=== PATIENT | female | born 1985 | race Caucasian/White ===

== ENCOUNTER 2016-10-10 14:08 | Emergency (ER) | payer MEDICAID ==
--- NOTE | 2016-10-10 14:33 | EDPHY ---
H & P Stated Complaint: n/v abd pain lower abd pain management/dr mcdonough/can't keep meds down Time Seen by Provider: 10/10/16 14:16 - Personal History LMP (Females 10-55): 15-21 Days Ago Current Tetanus/Diphtheria Vaccine: Yes Tetanus Vaccine Date: < 10 years - Medical/Surgical History Hx Asthma: Yes Hx Chronic Respiratory Disease: No Hx Diabetes: No Hx Cardiac Disease: No Hx Renal Disease: No Hx Cirrhosis: No Hx Alcoholism: No Hx HIV/AIDS: No Hx Splenectomy or Spleen Trauma: No Other PMH: ADDISONS DISEASE, PSEUDO-TUMOR CEREBREI, PREET-MOTOS, sinue surgery, copro proferia. - Social History Smoking Status: Never smoked Constitutional: Initial Vital Signs Temperature (C) 36.5 C 10/10/16 14:13 Heart Rate 110 H 10/10/16 14:13 Respiratory Rate 20 10/10/16 14:13 Blood Pressure 115/72 10/10/16 14:13 O2 Sat (%) 98 10/10/16 14:13 O2 Delivery Mode Room Air Allergies/Adverse Reactions: morphine [Morphine] Allergy (Intermediate, Verified 10/10/16 14:10) Itching Penicillins Allergy (Mild, Verified 10/10/16 14:10) Hives prochlorperazine [From Compazine] Allergy (Verified 10/10/16 14:10) prochlorperazine edisylate [From Compazine] Allergy (Verified 10/10/16 14:10) prochlorperazine maleate [From Compazine] Allergy (Verified 10/10/16 14:10) Sulfa (Sulfonamide Antibiotics) Allergy (Verified 10/10/16 14:10) VERSED Allergy (Unknown, Uncoded 02/25/15 15:45) Home Medications: Medication Instructions Recorded Hyoscyamine 0.15 mg PO QID #20 tablet 10/10/16 Keflex 10/10/16 Linzess 10/10/16 Percocet 7.5-325 mg Tablet 10/10/16 Sucralfate [Carafate Suspension] 100 mg PO QID #240 ml 10/10/16 Valium 10/10/16 Medical Decision Making ED Course/Re-evaluation: CHIEF COMPLAINT: Abdominal pain, vomiting. HISTORY OF PRESENT ILLNESS: This patient is a 31 year old female complaining of abdominal pain and vomiting onset one month ago and difficulty swallowing onset three days ago. She has history of Arahs's disease, and has had an episode beginning September 16. She was hospitalized in early September on the [facility] and has followed up with gastroenterologists. She has tried scopolamine, Phenergan, Zofran, and Reglan to relieve her nausea, but has been unable to keep down fluids or food. She is followed by Dr. Mcdonough at [facility] for chronic pain, but has been unable to keep her pain medication down either. She states she has lost 18 pounds in the last month. Three days ago, she felt her throat was closing up and states that swallowing has become difficult and painful. She has not taken any medications such as topical anesthetics for this. She takes Prednisone for her [place]'s and has been on a course of Doxycycline for a skin infection as well. Today, she has abdominal pain and flank pain as well as pain and difficulty with swallowing. She denies fever, shortness of breath, chills, diarrhea, or other associated symptoms. REVIEW OF SYSTEMS: A 10 point review of systems was performed and is negative with the exception of the elements mentioned in the history of present illness. PHYSICAL EXAM: General Appearance: Alert, well hydrated, appropriate, and non-toxic appearing. Head: Atraumatic without scalp tenderness or obvious injury Eyes: Pupils equal, round, reactive to light and accommodation, EOMI, no trauma , no injection. Ears: Clear bilaterally, no perforation, normal landmarks Nose: Atraumatic, no rhinorrhea, clear. Throat: There is no erythema or exudates, no lesions, normal tonsils, mucus membranes moist. Neck: Supple, 2+ carotid upstroke, non-tender, no lymphadenopathy. Respiratory: No retractions, no distress, no wheezes, and no accessory muscle use. Lungs are clear to auscultation bilaterally. Cardiovascular: Regular rate and rhythm, no murmurs, rubs, or gallops. Bilateral carotid, radial, dorsalis pedis, and posterior tibial pulses intact. Good capillary refill all extremities. Gastrointestinal: Lower left quadrant tenderness. Abdomen is soft, non- distended, no masses, no rebound, no guarding, no peritoneal signs. Musculoskeletal: Normal active ROM of all extremities, atraumatic. Neurological: Alert, appropriate, and interactive. The patient has normal DTRs and non-focal cranial nerves, motor, sensory, and cerebellar exam. Skin: No rashes, good turgor, no nodules on palpation. 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 PAST SURGICAL HISTORY: Sinus surgery SOCIAL HISTORY: Mother at bedside DIFFERENTIAL DIAGNOSIS: The differential diagnosis for the patient's abdominal pain and difficulty swallowing included but was not limited to dysphagia, odynophagia, gastritis, ovarian cyst, pelvic inflammatory disease, ovarian torsion, urinary tract infection, ectopic , cholecystitis, and appendicitis. MEDICAL DECISION MAKIN31 year old female with history of Arash's disease presenting with one month history of abdominal pain and vomiting with recent onset of dysphagia and odynophagia. Plan for GI cocktail for symptom relief. Lab work. Try Ketamine for pain. Plan to rehydrate with D5LR rather than normal saline per patient's request due to [[place]'s disease?]. Plan for labs including CBC, BMP, liver, lipase, BHCG , UA. Plan to administer 10mg IV Ketamine for pain relief. Plan for consult with GI of the [facility]. Spoke with Dr. Zamora, hospitalist regarding admission to treat dehydration, pain, oral intake difficulty. Labs unremarkable. Reassessed patient. She is feeling much better following medications and rehydration. Will consider outpatient workup. 18:[address] Pak, shrimp trawler. He agrees outpatient workup is sufficient for this patient. Plan to discharge in good condition. She will follow up with GI of the [facility] tomorrow to schedule upper endoscopy. Provided prescriptions for pain and symptom relief. Return precautions discussed. The patient is comfortable with this plan. - Data Points Laboratory Results: Laboratory Results 10/10/16 15:23 10/10/16 15:23 10/10/16 10/10/16 10/10/16 16:50 15:23 15:23 WBC RBC Hgb POC Hgb Hct POC Hct MCV MCH MCHC RDW Plt Count MPV Neut % (Auto) Lymph % (Auto) [place] % (Auto) Eos % (Auto) Baso % (Auto) Nucleat RBC Rel Count Absolute Neuts (auto) Absolute Lymphs (auto) Absolute Monos (auto) Absolute Eos (auto) Absolute Basos (auto) Absolute Nucleated RBC Immature Gran % Immature Gran # POC Sodium Sodium 138 mEq/L mEq/L (134-144) POC Potassium Potassium 4.5 mEq/L mEq/L (3.5-5.2) POC Chloride Chloride 109 mEq/L mEq/L (97-110) Carbon Dioxide 16 mEq/l L mEq/l (22-31) Anion Gap 13 mEq/L mEq/L (8-16) POC BUN BUN 8 mg/dL mg/dL (7-23) Creatinine 0.6 mg/dL mg/dL (0.6-1.0) POC Creatinine Estimated GFR > 60 Glucose 107 mg/dL H mg/dL (70-100) POC Glucose Calcium 9.5 mg/dL mg/dL (8.5-10.4) Total Bilirubin 0.5 mg/dL mg/dL (0.1-1.4) Conjugated Bilirubin 0.3 mg/dL mg/dL (0.0-0.5) Unconjugated Bilirubin 0.2 mg/dL mg/dL (0.0-1.1) AST 19 IU/L IU/L (14-46) ALT 20 IU/L IU/L (9-52) Alkaline Phosphatase 57 IU/L IU/L (38-126) Total Protein 6.9 g/dL g/dL (6.3-8.2) Albumin 4.2 g/dL g/dL (3.5-5.0) Lipase 49.0 IU/L IU/L (23-300) Beta HCG, Qual NEGATIVE Urine Color PALE YELLOW Urine Appearance CLEAR Urine pH 6.0 (5.0-7.5) Ur Specific Cleves 1.003 (1.002-1.030) Urine Protein NEGATIVE (NEGATIVE) Urine Ketones NEGATIVE (NEGATIVE) Urine Blood NEGATIVE (NEGATIVE) Urine Nitrate NEGATIVE (NEGATIVE) Urine Bilirubin NEGATIVE (NEGATIVE) Urine Urobilinogen NEGATIVE EU EU (0.2-1.0) Ur Leukocyte Esterase NEGATIVE (NEGATIVE) Urine RBC 1-3 /hpf /hpf (0-3) Urine WBC 1-3 /hpf /hpf (0-3) Ur Epithelial Cells TRACE /lpf /lpf (NONE-1+) Urine Glucose NEGATIVE (NEGATIVE) 10/10/16 10/10/16 15:23 15:21 WBC 11.49 10^3/uL H 10^3/uL (3.80-9.50) RBC 4.16 10^6/uL L 10^6/uL (4.18-5.33) Hgb 13.2 g/dL g/dL (12.6-16.3) POC Hgb 13.9 gm/dL gm/dL (12.6-16.3) Hct 38.2 % % (38.0-47.0) POC Hct 41 % % (38-47) MCV 91.8 fL fL (81.5-99.8) MCH 31.7 pg pg (27.9-34.1) MCHC 34.6 g/dL g/dL (32.4-36.7) RDW 13.2 % % (11.5-15.2) Plt Count 207 10^3/uL 10^3/uL (150-400) MPV 9.4 fL fL (8.7-11.7) Neut % (Auto) 83.5 % H % (39.3-74.2) Lymph % (Auto) 11.7 % L % (15.0-45.0) [place] % (Auto) 4.1 % L % (4.5-13.0) Eos % (Auto) 0.1 % L % (0.6-7.6) Baso % (Auto) 0.3 % % (0.3-1.7) Nucleat RBC Rel Count 0.0 % % (0.0-0.2) Absolute Neuts (auto) 9.60 10^3/uL H 10^3/uL (1.70-6.50) Absolute Lymphs (auto) 1.34 10^3/uL 10^3/uL (1.00-3.00) Absolute Monos (auto) 0.47 10^3/uL 10^3/uL (0.30-0.80) Absolute Eos (auto) 0.01 10^3/uL L 10^3/uL (0.03-0.40) Absolute Basos (auto) 0.03 10^3/uL 10^3/uL (0.02-0.10) Absolute Nucleated RBC 0.00 10^3/uL 10^3/uL (0-0.01) Immature Gran % 0.3 % % (0.0-1.1) Immature Gran # 0.04 10^3/uL 10^3/uL (0.00-0.10) POC Sodium 138 mEq/L mEq/L (134-144) Sodium POC Potassium 4.1 mEq/L mEq/L (3.3-5.0) Potassium POC Chloride 104 mEq/L mEq/L (97-110) Chloride Carbon Dioxide Anion Gap POC BUN 6 mg/dL L mg/dL (7-23) BUN Creatinine POC Creatinine 0.5 mg/dL L mg/dL (0.6-1.0) Estimated GFR Glucose POC Glucose 117 mg/dL H mg/dL (70-100) Calcium Total Bilirubin Conjugated Bilirubin Unconjugated Bilirubin AST ALT Alkaline Phosphatase Total Protein Albumin Lipase Beta HCG, Qual Urine Color Urine Appearance Urine pH Ur Specific Cleves Urine Protein Urine Ketones Urine Blood Urine Nitrate Urine Bilirubin Urine Urobilinogen Ur Leukocyte Esterase Urine RBC Urine WBC Ur Epithelial Cells Urine Glucose Medications Given: Discontinued Medications Al Hydroxide/Mg Hydroxide (Maalox Susp) 30 ml PO ONCE ONE Stop: 10/10/16 14:37 Last Admin: 10/10/16 15:29 Dose: 30 ml Hyoscyamine Sulfate (Levsin, Hyomax-Sl) 0.25 mg PO ONCE ONE Stop: 10/10/16 14:37 Last Admin: 10/10/16 15:29 Dose: 0.25 mg Lactated Ringer's (Lr) 1,000 mls @ 150 mls/hr IV EDNOW ONE Stop: 10/10/16 22:47 Last Admin: 10/10/16 16:10 Dose: 1,000 mls Ketamine HCl (Ketamine) 10 mg IVP EDNOW ONE Stop: 10/10/16 14:36 Last Admin: 10/10/16 15:29 Dose: 10 mg Ketorolac Tromethamine (Toradol) 30 mg IVP EDNOW ONE Stop: 10/10/16 14:36 Last Admin: 10/10/16 15:29 Dose: 30 mg Lidocaine (Lidocaine 2% Viscous) 15 ml PO ONCE ONE Stop: 10/10/16 14:37 Last Admin: 10/10/16 15:29 Dose: 15 ml Point of Care Test Results: 10/10/16 15:21 POC Sodium 138 POC Potassium 4.1 POC Chloride 104 POC BUN 6 L POC Creatinine 0.5 L POC Glucose 117 H Departure - Departure Disposition: Home, Routine, Self-Care Clinical Impression: Odynophagia Dysphagia Qualifiers: Dysphagia type: pharyngoesophageal phase Qualified Code(s): R13.14 - Dysphagia , pharyngoesophageal phase Condition: Good Instructions: Sucralfate (By mouth), Hyoscyamine (By mouth), Dysphagia (ED) Additional Instructions: 1. Follow up with GI of the [facility] for an upper endoscopy for further evaluation of your difficulty swallowing. They will call you first thing tomorrow morning to set up this procedure. 2. Take your Sucralfate as prescribed to relieve symptoms. 3. Return to the emergency department for uncontrollable pain, inability to eat or drink, uncontrollable vomiting, or other worsening of condition. Referrals: GWENDOLYN CHAN [Other] - As per Instructions Jl Pak MD [Medical Doctor] - As per Instructions Prescriptions: Hyoscyamine 0.15 mg PO QID #20 tablet Sucralfate [Carafate Suspension] 100 mg PO QID #240 ml Report Scribed for: Justice Knight Report Scribed by: Nellie Randolph Date of Report: 10/10/16 Time of Report: 18:16
[2016-10-10] MEDS ORDERED: KETOROLAC 30 MG/1 ML SDV IVP ONE (14:35)
[2016-10-10] MEDS ORDERED: KETAMINE 100 MG/10 ML SYR IVP ONE (14:35)
[2016-10-10] MEDS ORDERED: LIDOCAINE 2% VISCOUS 15 ML UDCUP PO ONE (14:36)
[2016-10-10] MEDS ORDERED: HYOSCYAMINE SULFATE 0.125 MG TAB PO ONE (14:36)
[2016-10-10] MEDS ORDERED: MAG HYDROX/AL HYDROX/SIMETH 30 ML UDCUP PO ONE (14:36)
[2016-10-10] MEDS ORDERED: D5W LR 1,000 ML IV SCH (15:30)
[2016-10-10 15:44] LABS: % IMMATURE GRANULYOCYTES 0.3 % (0.0-1.1); ABSOLUTE IMMATURE GRANULOCYTES 0.04 10^3/uL (0.00-0.10); ADD DIFF? NO; ADD MORPH? NO; ADD SCAN? NO; ATYPICAL LYMPHOCYTE FLAG 20 (0-99); FRAGMENT RBC FLAG 0 (0-99); HEMATOCRIT 38.2 % (38.0-47.0); HEMOGLOBIN 13.2 g/dL (12.6-16.3); LEFT SHIFT FLG 10 (0-99); LIPEMIA HEMOLYSIS FLAG 90 (0-99); MEAN CELL HEMOGLOBIN 31.7 pg (27.9-34.1); MEAN CELL HEMOGLOBIN CONCENTR. 34.6 g/dL (32.4-36.7); MEAN CELL VOLUME 91.8 fL (81.5-99.8); MEAN PLATELET VOLUME 9.4 fL (8.7-11.7); PLATELET CLUMPS FLAG 20 (0-99); PLATELET COUNT 207 10^3/uL (150-400); RED BLOOD CELL COUNT 4.16 10^6/uL (4.18-5.33); RED CELL DISTRIBUTION WIDTH 13.2 % (11.5-15.2)
[2016-10-10 15:57] LABS: ALANINE AMINOTRANSFERASE 20 IU/L (9-52); ALBUMIN 4.2 g/dL (3.5-5.0); ALKALINE PHOSPHATASE 57 IU/L (38-126); ANION GAP 13 mEq/L (8-16); ASPARTATE AMINOTRANSFERASE 19 IU/L (14-46); BILIRUBIN,TOTAL 0.5 mg/dL (0.1-1.4); BILIRUBIN-CONJUGATED 0.3 mg/dL (0.0-0.5); BILIRUBIN-UNCONJUGATED 0.2 mg/dL (0.0-1.1); CALCIUM 9.5 mg/dL (8.5-10.4); CARBON DIOXIDE 16 mEq/l (22-31); CHLORIDE 109 mEq/L (97-110); CREATININE 0.6 mg/dL (0.6-1.0); GLOMERULAR FILTRATION RATE > 60; GLUCOSE 107 mg/dL (70-100); POTASSIUM 4.5 mEq/L (3.5-5.2); SODIUM 138 mEq/L (134-144); TOTAL PROTEIN 6.9 g/dL (6.3-8.2)
[2016-10-10] MEDS ORDERED: LR 1,000 ML IV ONE (16:08)
[2016-10-10 17:01] LABS: COLOR PALE YELLOW; LEUKOCYTE ESTERASE,URINE NEGATIVE (NEGATIVE); NITRITE,URINE NEGATIVE (NEGATIVE)
[2016-10-10 17:39] VITALS: BP 100/62; RESP 16
[2016-10-10 18:36] VITALS: PULSE 99; TEMP 98.2; O2SAT 94
== END 2016-10-10 18:34 | disposition home or self-care (01) ==
DX: R13.14 Dysphagia, pharyngoesophageal phase (principal); J45.909 Unspecified asthma, uncomplicated; E86.0 Dehydration
CPT/HCPCS: 82947-QW; 96374; J1885

== ENCOUNTER 2016-10-12 09:35 | Day surgery (SDC) | payer MEDICAID ==
[2016-10-12] MEDS ORDERED: LR 1,000 ML IV ONE (10:48)
--- NOTE | 2016-10-12 11:04 | PDANEPAE ---
ANE History of Present Illness Patient presents for EGD ANE Past Medical History - Cardiovascular History Hx Hypertension: No Hx Arrhythmias: No Hx Chest Pain: No Hx Coronary Artery / Peripheral Vascular Disease: No Hx CHF / Valvular Disease: No Hx Palpitations: No Cardiovascular History Comment: BP RUNS LOW - Pulmonary History Hx COPD: No Hx Asthma/Reactive Airway Disease: Yes Hx Recent Upper Respiratory Infection: No Hx Oxygen in Use at Home: No Hx Sleep Apnea: No Sleep Apnea Screening Result - Last Documented: Negative Pulmonary History Comment: ASTHMA IN CHILDHOOD - Neurologic History Hx Cerebrovascular Accident: No Hx Seizures: No Hx Dementia: No Neurologic History Comment: SEIZURES IN CHILDHOOD - Endocrine History Hx Diabetes: Yes Endocrine History Comment: HASHIMOTOS - Renal History Hx Renal Disorders: No - Liver History Hx Hepatic Disorders: Yes Hepatic History Comment: JAIRO - Neurological & Psychiatric Hx Hx Neurological and Psychiatric Disorders: Yes Neurological / Psychiatric History Comment: ANXIETY & DEPRESSION - Cancer History Hx Cancer: No - Congenital Disorder History Hx Congenital Disorders: No - GI History Hx Gastrointestinal Disorders: Yes Gastrointestinal History Comment: CURRENTLY PAIN ESOPHAGEAL,STOMACH, ABDOMEN. NAUSEA & VOMITING - Other Health History Other Health History: CHRONIC PAIN. VERTIGO & FAINTING. JEREMI'S DISEASE. CORPROPORPHYRIA - Chronic Pain History Chronic Pain: Yes (flank/ head/ neck) - Surgical History Prior Surgeries: SALPINGECTOMY LACY & IUD. REMOVAL. BREAST AUGMENTATIONS. SINUS SURG X3. APPENDECTOMY. CHOLECYSTECTOMY. ADENOIDECTOMY. ABDOMINAL EXP LAP ANE Review of Systems - Exercise capacity Exercise capacity: >=4 METS METS (RN): 2 METS ANE Patient History - Allergies Allergies/Adverse Reactions: morphine [Morphine] Allergy (Intermediate, Verified 10/12/16 09:55) Hives Penicillins Allergy (Mild, Verified 10/10/16 14:10) Hives prochlorperazine [From Compazine] Allergy (Verified 10/10/16 14:10) prochlorperazine edisylate [From Compazine] Allergy (Verified 10/12/16 09:56) Anxiety prochlorperazine maleate [From Compazine] Allergy (Verified 10/10/16 14:10) Sulfa (Sulfonamide Antibiotics) Allergy (Verified 10/12/16 09:56) VERSED Allergy (Unknown, Uncoded 10/12/16 09:57) - Home Medications Home medications: home medication list seen and reviewed Home Medications: Linzess 290 mcg DAILY 10/10/16 [Last Taken 10/12/16 05:00] Valium 5 mg TID 10/10/16 [Last Taken 1 Day Ago] Cortef 5 mg BID 10/11/16 [Last Taken 1 Day Ago] Haldol 1 mg Q8HRS 10/11/16 [Last Taken 1 Day Ago] Keflex 500 QID 10/11/16 [Last Taken 10/11/16 19:00] Oxycodone HCl 7.5 Q6 10/11/16 [Last Taken 10/12/16 05:00] - NPO status NPO Status: no food or drink >8 hours NPO Since - Liquids (Date): 10/12/16 NPO Since - Liquids (Time): 05:00 NPO Since - Solids (Date): 10/11/16 NPO Since - Solids (Time): 17:00 - Smoking Hx Smoking Status: Never smoked - Family Anes Hx Family Hx Anesthesia Complications: MOTHER - CANNOT TOLERATE VERSED. AND OTHER ANESTH AGENTS ANE Labs/Vital Signs - Vital Signs Blood Pressure: 114/81 Heart Rate: 75 Respiratory Rate: 16 O2 Sat (%): 95 Height: 180.34 cm Weight: 72.575 kg ANE Physical Exam - Airway Neck exam: FROM Mouth exam: normal dental/mouth exam - Pulmonary Pulmonary: no respiratory distress - Cardiovascular Cardiovascular: regular rate and rhythym - ASA Status ASA Status: II ANE Anesthesia Plan Anesthesia Plan: GA with mask (RBA discussed. patient agrees to proceed)
[2016-10-12] MEDS ORDERED: PROPOFOL/EMULSION 500 MG/50 ML BOTTLE IV ONE (11:07)
[2016-10-12] MEDS ORDERED: ONDANSETRON 4 MG/2 ML VIAL ONE (11:07)
[2016-10-12] MEDS ORDERED: DEXAMETHASONE 4 MG/ML VIAL ONE ×2 (11:07)
[2016-10-12] MEDS ORDERED: LIDOCAINE 2% 5 ML SDV ONE (11:07)
[2016-10-12] MEDS ORDERED: LR 500 ML IV PRN (11:16)
[2016-10-12] MEDS ORDERED: ONDANSETRON 4 MG/2 ML VIAL IVP PRN (11:16)
[2016-10-12] MEDS ORDERED: NALOXONE HCL 0.4 MG/ML INJ IVP PRN (11:16)
--- NOTE | 2016-10-12 11:29 | PDGENHP ---
History & Physical Chief Complaint: Odynophagia and globus History of Present Illness: 31 yo female with ongoing n/v and early satiety. Episodic abdominal pain with meals. Now with globus and ogynophagia Pertinent Past, Social, Family History: Chronic pelvic pain. GERD. Vocal cord spasm Relevant Physical Exam: NAD. Hoarse voice. OP clear without thrush. CTA B/L. RRR without m/r/g. Soft abdomen. NABS. No R/G. Cardiorespiratory Assessment: Normal. ASA 2. Plan for EGD with MAC
[2016-10-12] MEDS ORDERED: OXYCODONE/APAP 5/325 TAB PO PRN (11:53)
--- NOTE | 2016-10-12 11:53 | POSTANESTH ---
Post Anesthetic Evaluation Cardiovascular Status: Normal, Stable Respiratory Status: Normal, Stable Level of Consciousness/Mental Status: Can Participate in Eval Pain Control: Adequate, Prn Tx Ordered Nausea/Vomiting Control: Adequate, Prn Tx Ordered Complications Possibly Related to Anesthesia: None Noted
[2016-10-12] MEDS ORDERED: OXYCODONE/APAP 5/325 TAB ONE (12:07)
[2016-10-12] MEDS ORDERED: fentaNYL 100 MCG/2 ML INJ ONE (12:27)
[2016-10-12] MEDS ORDERED: fentaNYL 50 MCG PATCH TD ONE (12:30)
[2016-10-12 12:31] VITALS: TEMP 97.3
--- NOTE | 2016-10-12 12:44 | GPN ---
[f rep st] PROCEDURE NOTE DATE OF PROCEDURE: 10/12/2016 PROCEDURE: Upper endoscopy with esophageal biopsy. ENVIRONMENTAL GEOLOGIST: Jl Pak MD. ANESTHESIA: Byron Gardner MD. ENDOSCOPY STAFF: David [facility] [employer]. PROCEDURE COMPLICATIONS: None. ESTIMATED BLOOD LOSS: Minimal from esophageal biopsy. CONSENT: Procedure consent was obtained from the patient after the risks and benefits of endoscopy and anesthesia were discussed in detail. Due to her history with complications from previous anesth esia and allergies to Versed, monitored anesthesia care was necessary. All her questions were answe red and informed consent was obtained. Procedure monitoring is continuous per anesthesia protocol. PROCEDURE DESCRIPTION: The patient was placed into the left lateral decubitus position with the hea d of the bed at about 30 degrees. Propofol was administered until she was comfortable. Oxygen was administered via mask. An oral bite block was placed and the Olympus endoscope was utilized to ente r the oropharynx. Under direct visualization, the endoscope was intubated into the esophagus and ad vanced ultimately to the 2nd portion of the duodenum. All mucosal surfaces were examined in their e ntirety including a retroflexed view of the gastric cardia. FINDINGS: The oropharynx was normal. The tongue is normal. The hypopharynx is normal. The epiglo ttis is normal. The vocal cords appeared normal. The tubular esophagus was intubated easily. In t he proximal esophagus at 20 cm from the incisors, was a circumferential pill-induced ulcer with exud ate friability and clear focal injury. This correlates well with her odynophagia and pain. The rem aining esophagus below the esophageal ulceration was normal. The GE junction was normal with the Z- line at 35 cm. The stomach was normal in its entirety including a retroflexed view of the gastric c ardia. The duodenum was normal to the third portion. IMPRESSION: Proximal esophageal circumferential ulceration with exudate and friability. This is mo st consistent with a pill-induced esophageal ulceration and pill-induced esophagitis. The remaining exam is normal. Biopsies were taken of the esophageal ulceration. RECOMMENDATIONS: 1. Soft diet. 2. Viscous lidocaine swallow for discomfort 5% t.i.d. for the next 7-10 days. 3. Omeprazole 40 mg p.o. b.i.d. 4. Await esophageal biopsies. 5. GI follow up in 7-10 days to reassess. /[id number]/MODL
[2016-10-12] MEDS ORDERED: fentaNYL 100 MCG/2 ML INJ IVP ONE (12:45)
[2016-10-12] MEDS ORDERED: KETOROLAC 30 MG/1 ML SDV ONE (13:58)
[2016-10-12] MEDS ORDERED: KETOROLAC 30 MG/1 ML SDV IVP ONE (14:00)
[2016-10-12] MEDS ORDERED: HALOPERIDOL 1 MG TAB PO ONE (14:00)
[2016-10-12 15:08] VITALS: BP 113/71; PULSE 78; RESP 16; O2SAT 94
== END 2016-10-12 14:44 | disposition home or self-care (01) ==
LOC: FSGY 09:35
PROVIDERS: ATTEND Internal Medicine Gastroenterology
PROC: 0DB58ZX Excision of Esophagus, Via Natural or Artificial Opening Endoscopic, Diagnostic (ICD-10-PCS; principal; 2016-10-12 11:00)
DX: K22.10 Ulcer of esophagus without bleeding (principal); T50.995A Adverse effect of other drugs, medicaments and biological substances, initial encounter; R13.12 Dysphagia, oropharyngeal phase; F45.8 Other somatoform disorders; E06.3 Autoimmune thyroiditis; F41.8 Other specified anxiety disorders
CPT/HCPCS: J1100; J1885; J2405; J2704; J3010

== ENCOUNTER 2016-10-13 11:07 | Inpatient (IN) | payer MEDICAID ==
--- NOTE | 2016-10-13 12:00 | EDPHY ---
H & P Time Seen by Provider: 10/13/16 11:55 HPI/ROS: Chief complaint. Nausea and vomiting after endoscopy HPI. 31-year-old female with history of chronic pain and has been having her pain with swallowing. She had an upper GI yesterday with indication of a did aphasia. A lesion was found in the proximal esophagus at 20 cm from incisors showing a circumferential likely pill induced ulcer. She tells me she can't keep her medications down and has had nausea and vomiting despite using Phenergan suppositories. Most importantly she has been at unable to take her chronic pain medication. She complains of pain behind the breast bone increased pain with swallowing. She also complains of generalized abdominal pain. ROS Constitutional. no fever/chills, no weakness Eyes. no problems with vision ENT. no sore throat, no nasal drainage Cardiovascular. no chest pain Respiratory. no shortness of breath, no cough Abdominal. Pain with swallowing, nausea vomiting, generalized abdominal pain . no problems urinating MS. no calf pain/swelling, no neck/back pain, no joint pain Skin. no rash Lymph. no swollen glands Neuro. 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 ENT, oropharynx without injection Respiratory: There are no retractions, lungs are clear to auscultation. Cardiovascular: Regular rate and rhythm. Gastrointestinal: Abdomen is soft and diffuse tenderness. No masses. Normal bowel sounds Neurological: Awake and alert, sensory and motor exams grossly normal. Skin: Warm and dry, no rashes. Musculoskeletal: Neck is supple nontender. Extremities symmetrical, full range of motion. Psychiatric: Patient is oriented X 3, there is no agitation. Constitutional: Initial Vital Signs Temperature (C) 36.5 C 10/13/16 11:13 Heart Rate 75 10/13/16 11:13 Respiratory Rate 18 10/13/16 11:13 Blood Pressure 117/82 H 10/13/16 11:13 O2 Sat (%) 99 10/13/16 11:13 O2 Delivery Mode Room Air Allergies/Adverse Reactions: Sulfa (Sulfonamide Antibiotics) Allergy (Severe, Verified 10/13/16 14:13) Other-Enter Comments morphine [Morphine] Allergy (Intermediate, Verified 10/13/16 11:12) Hives prochlorperazine edisylate [From Compazine] Allergy (Intermediate, Verified 14:13) Anxiety Penicillins Allergy (Mild, Verified 10/13/16 11:12) Hives VERSED Allergy (Mild, Uncoded 10/13/16 14:13) Other-Enter Comments Home Medications: Medication Instructions Recorded Cephalexin [Keflex (*)] 500 mg PO QID 10/13/16 Cyclobenzaprine [Flexeril 10 MG 10 mg PO TID PRN 10/13/16 (*)] Diazepam [Valium 5 MG (*)] 5 - 10 mg PO Q6HRS PRN 10/13/16 Haloperidol [Haldol 1 MG (*)] 1 mg PO Q8H PRN 10/13/16 Hydrocortisone [Cortef 10 mg (*)] 10 mg PO DAILY 10/13/16 Hyoscyamine Sulfate [Levsin, 0.125 mg PO QID 10/13/16 Hyomax-Sl 0.125 mg (*)] Linaclotide [Linzess] 290 mcg PO DAILY 10/13/16 Promethazine HCl 25 mg RC TID PRN 10/13/16 Promethazine HCl [Phenergan 25mg 25 mg PO TID PRN 10/13/16 (*)] Sucralfate [Carafate Oral Liquid] 15 ml PO QID 10/13/16 oxyCODONE HCL/ACETAMINOPHEN 1 each PO Q6H PRN 10/13/16 [Percocet 7.5-325 mg Tablet] Medical Decision Making - Diagnostics Imaging Results: Imaging Impressions Chest X-Ray 10/13/16 13:26 Impression: Normal chest x-ray. One-view chest x-ray is normal and shows no evidence for perforation Procedures: IV normal saline. Dilaudid, Phenergan IV. GI cocktail. ED Course/Re-evaluation: Re-evaluation 1:05 p.m. patient continues to complain of pain and nausea. She is repeatedly asking for further pain medication. We have offered her further Phenergan. She and I discussed at the beginning that I would be happy to give her dose of Dilaudid however we will not be giving her repeat doses of pain medication The patient, her mother, and I discussed laboratory evaluation, treatment plan including recommendation fo admission. She expresses understanding and agreement I consulted and discussed the case with Dr. Collins, hospitalist, who agrees to the admission I consulted and discussed the case with Dr. Parikh, supervisor grower who will consult on the patient in the hospital Differential Diagnosis: The patient does have a apparent pill induced ulcer in her esophagus. However she has had nausea and vomiting and unable to take her regular medications including her oxycodone. I have concerns for dehydration, opiate withdrawal, electrolyte abnormality, esophageal perforation following upper GI and biopsy - Data Points Laboratory Results: Laboratory Results 10/13/16 12:10/13/16 12:10/13/16 10/13/16 10/13/16 12: 12: 12:01 WBC 11.27 10^3/uL H 10^3/uL (3.80-9.50) RBC 3.94 10^6/uL L 10^6/uL (4.18-5.33) Hgb 12.3 g/dL L g/dL (12.6-16.3) Hct 36.4 % L % (38.0-47.0) MCV 92.4 fL fL (81.5-99.8) MCH 31.2 pg pg (27.9-34.1) MCHC 33.8 g/dL g/dL (32.4-36.7) RDW 13.2 % % (11.5-15.2) Plt Count 226 10^3/uL 10^3/uL (150-400) MPV 9.4 fL fL (8.7-11.7) Neut % (Auto) 64.5 % % (39.3-74.2) Lymph % (Auto) 28.6 % % (15.0-45.0) Anderson % (Auto) 6.0 % % (4.5-13.0) Eos % (Auto) 0.2 % L % (0.6-7.6) Baso % (Auto) 0.3 % % (0.3-1.7) Nucleat RBC Rel Count 0.0 % % (0.0-0.2) Absolute Neuts (auto) 7.28 10^3/uL H 10^3/uL (1.70-6.50) Absolute Lymphs (auto) 3.22 10^3/uL H 10^3/uL (1.00-3.00) Absolute Monos (auto) 0.68 10^3/uL 10^3/uL (0.30-0.80) Absolute Eos (auto) 0.02 10^3/uL L 10^3/uL (0.03-0.40) Absolute Basos (auto) 0.03 10^3/uL 10^3/uL (0.02-0.10) Absolute Nucleated RBC 0.00 10^3/uL 10^3/uL (0-0.01) Immature Gran % 0.4 % % (0.0-1.1) Immature Gran # 0.04 10^3/uL 10^3/uL (0.00-0.10) Sodium 138 mEq/L mEq/L (134-144) Potassium 3.9 mEq/L mEq/L (3.5-5.2) Chloride 106 mEq/L mEq/L (97-110) Carbon Dioxide 20 mEq/l L mEq/l (22-31) Anion Gap 12 mEq/L mEq/L (8-16) BUN 10 mg/dL mg/dL (7-23) Creatinine 0.6 mg/dL mg/dL (0.6-1.0) Estimated GFR > 60 Glucose 90 mg/dL mg/dL (70-100) Calcium 9.0 mg/dL mg/dL (8.5-10.4) Total Bilirubin 0.3 mg/dL mg/dL (0.1-1.4) Conjugated Bilirubin 0.3 mg/dL mg/dL (0.0-0.5) Unconjugated Bilirubin 0.0 mg/dL mg/dL (0.0-1.1) AST 16 IU/L IU/L (14-46) ALT 23 IU/L IU/L (9-52) Alkaline Phosphatase 52 IU/L IU/L (38-126) Total Protein 6.6 g/dL g/dL (6.3-8.2) Albumin 4.0 g/dL g/dL (3.5-5.0) Lipase 71.0 IU/L IU/L (23-300) Beta HCG, Qual NEGATIVE Medications Given: Discontinued Medications Al Hydroxide/Mg Hydroxide (Maalox Susp) 30 ml PO ONCE ONE Stop: 10/13/16 12:10 Last Admin: 10/13/16 12:52 Dose: 30 ml Hydromorphone HCl (Dilaudid) 1 mg IVP EDNOW ONE Stop: 10/13/16 12:10 Last Admin: 10/13/16 12:21 Dose: 1 mg Hyoscyamine Sulfate (Levsin, Hyomax-Sl) 0.25 mg PO ONCE ONE Stop: 10/13/16 12:10 Last Admin: 10/13/16 12:52 Dose: 0.25 mg Famotidine/Sodium Chloride (Pepcid 20 Mg (Premix)) 50 mls @ 200 mls/hr IV EDNOW ONE Stop: 10/13/16 12:23 Last Admin: 10/13/16 12:26 Dose: 50 mls Lactated Ringer's (Lr) 1,000 mls @ 500 mls/hr IV EDNOW ONE Stop: 10/13/16 14:07 Last Admin: 10/13/16 12:27 Dose: 1,000 mls Ketorolac Tromethamine (Toradol) 30 mg IVP EDNOW ONE Stop: 10/13/16 12:11 Last Admin: 10/13/16 12:22 Dose: 30 mg Lidocaine (Lidocaine 2% Viscous) 15 ml PO ONCE ONE Stop: 10/13/16 12:10 Last Admin: 10/13/16 12:52 Dose: 15 ml Promethazine HCl (Phenergan) 12.5 mg IVP EDNOW ONE Stop: 10/13/16 12:11 Last Admin: 10/13/16 12:23 Dose: 12.5 mg Promethazine HCl (Phenergan) 12.5 mg IVP EDNOW ONE Stop: 10/13/16 13:14 Last Admin: 10/13/16 13:18 Dose: 12.5 mg Departure - Departure Disposition: [facility] Acute Clinical Impression: Abdominal pain Condition: Fair
[2016-10-13] MEDS ORDERED: LR 1,000 ML IV ONE (12:08)
[2016-10-13] MEDS ORDERED: LIDOCAINE 2% VISCOUS 15 ML UDCUP PO ONE (12:09)
[2016-10-13] MEDS ORDERED: HYOSCYAMINE SULFATE 0.125 MG TAB PO ONE (12:09)
[2016-10-13] MEDS ORDERED: HYDROmorphONE/DILAUDID 1 MG/ML SYR IVP ONE (12:09)
[2016-10-13] MEDS ORDERED: MAG HYDROX/AL HYDROX/SIMETH 30 ML UDCUP PO ONE (12:09)
[2016-10-13] MEDS ORDERED: FAMOTIDINE 20 MG/NACL 50 ML IV ONE (12:09)
[2016-10-13] MEDS ORDERED: PROMETHAZINE HCL 25 MG/ML INJ IVP ONE ×2 (12:10→13:13)
[2016-10-13] MEDS ORDERED: KETOROLAC 30 MG/1 ML SDV IVP ONE (12:10)
[2016-10-13 12:15] LABS: % IMMATURE GRANULYOCYTES 0.4 % (0.0-1.1); ABSOLUTE IMMATURE GRANULOCYTES 0.04 10^3/uL (0.00-0.10); ADD DIFF? NO; ADD MORPH? NO; ADD SCAN? NO; ATYPICAL LYMPHOCYTE FLAG 10 (0-99); FRAGMENT RBC FLAG 0 (0-99); HEMATOCRIT 36.4 % (38.0-47.0); HEMOGLOBIN 12.3 g/dL (12.6-16.3); LEFT SHIFT FLG 0 (0-99); LIPEMIA HEMOLYSIS FLAG 90 (0-99); MEAN CELL HEMOGLOBIN 31.2 pg (27.9-34.1); MEAN CELL HEMOGLOBIN CONCENTR. 33.8 g/dL (32.4-36.7); MEAN CELL VOLUME 92.4 fL (81.5-99.8); MEAN PLATELET VOLUME 9.4 fL (8.7-11.7); PLATELET CLUMPS FLAG 20 (0-99); PLATELET COUNT 226 10^3/uL (150-400); RED BLOOD CELL COUNT 3.94 10^6/uL (4.18-5.33); RED CELL DISTRIBUTION WIDTH 13.2 % (11.5-15.2)
[2016-10-13 12:29] LABS: ALANINE AMINOTRANSFERASE 23 IU/L (9-52); ALKALINE PHOSPHATASE 52 IU/L (38-126); ANION GAP 12 mEq/L (8-16); ASPARTATE AMINOTRANSFERASE 16 IU/L (14-46); BILIRUBIN,TOTAL 0.3 mg/dL (0.1-1.4); BILIRUBIN-CONJUGATED 0.3 mg/dL (0.0-0.5); CARBON DIOXIDE 20 mEq/l (22-31); CHLORIDE 106 mEq/L (97-110); CREATININE 0.6 mg/dL (0.6-1.0); GLOMERULAR FILTRATION RATE > 60; GLUCOSE 90 mg/dL (70-100); POTASSIUM 3.9 mEq/L (3.5-5.2); SODIUM 138 mEq/L (134-144); TOTAL PROTEIN 6.6 g/dL (6.3-8.2)
[2016-10-13] MEDS ORDERED: ONDANSETRON DISINTEGRATING 4 MG TAB PO PRN (15:31)
[2016-10-13] MEDS ORDERED: ACETAMINOPHEN 325 MG TAB PO PRN (15:31)
[2016-10-13] MEDS ORDERED: HALOPERIDOL 1 MG TAB PO PRN (15:33)
[2016-10-13] MEDS ORDERED: CYCLOBENZAPRINE 10 MG TAB PO PRN (15:33)
[2016-10-13] MEDS ORDERED: NALOXONE HCL 0.4 MG/ML INJ IVP PRN (15:34)
[2016-10-13] MEDS: HYOSCYAMINE SULFATE 0.125 MG TAB PO SCH ×2 (16:00→20:07)
[2016-10-13] MEDS ORDERED: SUCRALFATE 1 GM/10 ML UDCUP PO SCH ×2 (16:00→17:30)
[2016-10-13] MEDS ORDERED: SUCRALFATE 100 MG/ML UDSYR PO SCH ×2 (16:00)
[2016-10-13] MEDS: ONDANSETRON 4 MG/2 ML VIAL IVP PRN ×2 (16:06→21:58)
[2016-10-13] MEDS: HYDROCORTISONE 100 MG/2 ML VIAL IVP SCH ×2 (16:06→21:24)
--- NOTE | 2016-10-13 16:09 | GHP ---
[f rep st] HISTORY AND PHYSICAL DATE OF ADMISSION: 10/13/2016 CHIEF COMPLAINT: Nausea, vomiting, abdominal pain. HISTORY OF PRESENT ILLNESS: This is a 31-year-old female with a complicated past medical history. She has been admitted multiple times for abdominal pain, nausea and vomiting. 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 She was last admitted in February with abdominal pain, nausea and vomiting. She did have a colonoscopy at that time, which was fairly normal. She had been doing fairly well, relatively speaking, until September 18 when her steroids were discontin ued briefly in order to get blood work, it appears. She had an addisonian crisis and was hospitalized at that time. Ever since then, she has been having lower abdominal pain as well as na usea and vomiting. She says she has lost about 20 pounds of weight since then. She did have an EGD done yesterday which showed a pill-induced ulcer in the esophagus. However, she states that becaus e of being n.p.o., she has just been unable to get on top of her pain and has not been able to lb ate her p.o. pain medications. She states that she gets into these cycles with both adrenal insuffi ciency and her pain syndrome where she needs IV medications to break the cycle. She is not having a ny fevers or chills. She does admit to some melena. Patient also has been on antibiotics for some time, as she has been having variable infections. She has recently been on Keflex due to cellulitis in her right arm. REVIEW OF SYSTEMS: A 10-point review of systems was obtained and was negative. PAST MEDICAL HISTORY: 1. Adrenal insufficiency. 2. Previous history of pseudotumor cerebri. 3. Possible porphyria. 4. Possible immune deficiency. 5. Chronic narcotic use. 6. Bipolar. 7. Stephan's. MEDICATIONS: Reviewed. SOCIAL HISTORY: No smoking. Lives with her mother. FAMILY HISTORY: Both father and grandfather with acute intermittent porphyria. PHYSICAL EXAM: VITAL SIGNS: Afebrile. Blood pressure is 119/83, heart rate 77, oxygen saturation 98% on room air. GENERAL: The patient is in mild to moderate distress secondary to pain and nausea . HEENT: Nonicteric sclerae. Extraocular movements intact. Moist mucous membranes. NECK: Suppl e. No thyromegaly. LUNGS: Good effort. Clear to auscultation bilaterally. CARDIOVASCULAR: Regu lar rate and rhythm. No murmurs, rubs or gallops. ABDOMEN: Positive bowel sounds. Soft. Mild te nderness. No rebound or guarding. EXTREMITIES: No clubbing, cyanosis or edema. SKIN: Without ra sh. There is a small excoriation on the right forearm that does not look overtly infected. NEUROLO GIC: Alert and oriented x3. Moving all 4 extremities equally. LABORATORIES: White count 11, hemoglobin 12. Chemistry and LFTs are normal. Beta HCG is negative. Chest x-ray personally reviewed and interpreted as negative. ASSESSMENT: This is a 31-year-old female with a complicated medical history, chronic abdominal pain , nausea and vomiting, presenting with similar symptoms after EGD. PLAN: 1. Abdominal pain, nausea and vomiting. The patient believes that if we can get on top of her pain that this should improve. She is requesting a AUTO RESEARCH ENGINEER, although I am concerned that there is a psychog enic component to this. I think that it might be worth trying to treat aggressively to see if we ca n get her out of the hospital. In addition, she states that this does happen when she is in adrenal crisis as well, and even though her blood pressures are normal, we will go ahead with some IV hydro cortisone. My hope is that we can treat aggressively and try to be able to get her out of the hospi merlin in the next 24 to 48 hours. 2. Possible adrenal insufficiency. Consultation note in 2014 was strongly skeptical of that diagno sis. I believe she [facility]. We may put her on a l ittle bit of a higher dose of steroids on discharge until she is able to see her combo welder. 3. Recent diagnosis of pill-induced ulcer. Continue PPI. /[id number]/MODL
[2016-10-13] MEDS ORDERED: diphenhydrAMINE 50 MG CAP PO PRN (18:32)
[2016-10-13] MEDS: diphenhydrAMINE 25 MG CAP PO PRN (18:43)
[2016-10-13] MEDS: PROMETHAZINE HCL 25 MG/ML INJ IVP PRN (19:35)
[2016-10-13] MEDS: HYDROmorphONE/DILAUDID 6 MG/30 ML PCA IV PRN (20:06)
[2016-10-13] MEDS: SUCRALFATE 1 GM/10 ML UDCUP PO SCH (20:07)
[2016-10-14] MEDS: diphenhydrAMINE 25 MG CAP PO PRN ×2 (01:29→17:24)
[2016-10-14] MEDS: D5W 1/2 NS W/ 20 KCl/L 1,000 ML IV SCH (01:32)
[2016-10-14] MEDS: PROMETHAZINE HCL 25 MG/ML INJ IVP PRN ×3 (01:33→18:22)
[2016-10-14] MEDS: HYDROmorphONE/DILAUDID 6 MG/30 ML PCA IV PRN ×3 (02:42→19:18)
[2016-10-14] MEDS: HYDROCORTISONE 100 MG/2 ML VIAL IVP SCH ×3 (05:19→22:20)
[2016-10-14] MEDS: HYOSCYAMINE SULFATE 0.125 MG TAB PO SCH ×4 (05:19→20:01)
[2016-10-14] MEDS: SUCRALFATE 1 GM/10 ML UDCUP PO SCH ×4 (05:19→20:01)
[2016-10-14] MEDS: ONDANSETRON 4 MG/2 ML VIAL IVP PRN ×3 (05:28→20:02)
[2016-10-14] MEDS: ENOXAPARIN 40 MG/0.4 ML SYR SC SCH (07:40)
[2016-10-14] MEDS: PANTOPRAZOLE SODIUM 40 MG in NS 100 ML IV SCH ×2 (10:10→20:01)
[2016-10-14] MEDS ORDERED: FLUCONAZOLE 150 MG TAB PO ONE (13:15)
--- NOTE | 2016-10-14 13:43 | SOAPPROG ---
[facility] Progress Note Assessment/Plan: Assessment: Plan: 10/14/16 13:42 See dictated consult for details. Objective: Vital Signs Temp Pulse Resp BP Pulse Ox 36.7 C 58 L 16 105/78 100 10/14/16 12:00 10/14/16 12:00 10/14/16 12:00 10/14/16 12:00 10/14/16 12:00 10/13/16 10/14/16 10/15/16 05:59 05:59 05:59 Intake Total 2450 Balance 2450 ICD10 Worksheet Patient Problems: Problems Problem Status Onset Headache Acute Colitis Acute Bloody diarrhea Acute Abdominal pain Acute
--- NOTE | 2016-10-14 14:51 | HOSPPROG ---
Hospitalist Progress Note Assessment/Plan: * acute on chronic abdominal pain and nausea * Unclear etiology * Will check GI pathogen panel * I do not believe a colonoscopy is indicated * question Orlando's disease * On higher dose steroids * A couple years ago this diagnosis was ruled out by Endocrinology * superficial cellulitis * Switch back to Keflex * questionable porphyria diagnosis * Studies have been negative here Subjective: Complaining of continued abdominal pain. Thinks she has an infection because heart rate is lower than normal Objective: Vital Signs Temp Pulse Resp BP Pulse Ox 36.7 C 72 18 121/81 H 96 10/14/16 12:00 10/14/16 14:00 10/14/16 14:00 10/14/16 14:00 10/14/16 14:00 10/13/16 10/14/16 10/15/16 05:59 05:59 05:59 Intake Total 2450 Balance 2450 Discussed with Gastroenterology - Physical Exam Constitutional: no apparent distress, appears nourished, not in pain Eyes: anicteric sclera, EOMI Ears, Nose, Mouth, Throat: moist mucous membranes, hearing normal Cardiovascular: regular rate and rhythym, no murmur, rub, or gallop Respiratory: no respiratory distress Gastrointestinal: normoactive bowel sounds, soft, non-tender abdomen, no palpable masses Skin: warm Neurologic: AAOx3 Psychiatric: anxious ICD10 Worksheet Patient Problems: Problems Problem Status Onset Abdominal pain Acute Bloody diarrhea Acute Colitis Acute Headache Acute
[2016-10-14] MEDS: DIAZEPAM 5 MG TAB PO PRN (17:23)
[2016-10-14] MEDS: CEPHALEXIN 250 MG CAP PO SCH (17:23)
--- NOTE | 2016-10-14 22:47 | GCON ---
[f rep st] CONSULTATION DATE OF CONSULTATION: 10/14/2016 CONSULTING PHYSICIAN: Amina Cortez MD REASON FOR CONSULTATION: Abdominal pain/nausea/vomiting. CHIEF COMPLAINT: Nausea and vomiting. HISTORY OF PRESENT ILLNESS: The patient is a 31-year-old female with a complicated medical history including a possible history of adrenal insufficiency, pseudotumor cerebri, porphyria, bipolar disorder, chronic narcotic use, who presents to [facility] with complaints of nausea , vomiting, as well as lower quadrant abdominal pain since September 15. She thinks her symptoms are precipitated by a taper of her steroids by her prior guest service host. Her main complaint is nausea and vomiting. Her symptoms occur on a daily basis and are exacerbated by any oral intake. She has had a hard tie tolerating any oral intake. Due to her complaints she presented to [facility] and had an upper endoscopy performed on 10/12/2016. She was found to have an ulcer at 20 cm from the gums. Due to its location and appearance, it is suspected this was a pill induced ulcer. Biopsies taken but pathology is still pending. She was placed on Carafate and PPI therapy. However, she states that her symptoms have not improved and she came back for further evaluation. She has lost at least 15 pounds in the last month. She also had complaints of significant pain in the lower quadrants of her abdomen. She describes it as a crampy sharp pain, which is present each day and last multiple hours. She believes the symptoms are sometimes relieved with bowel movements and may be exacerbated by oral intake. She denies any blood in the stools. Her symptoms have been present for years but have been more progressive in the last year. Her mom, as well as the patient believe that her symptoms could be caused by a colonic infection. She also complains of a alternating between diarrhea and constipation. She believes the constipation is more predominant. She has had chronic issues of lower quadrant abdominal pain and has been tried on Amitiza, as well as dicyclomine and hyoscyamine. She was recently started on Linzess and thinks this may be helping her mainly constipation, as well as abdominal discomfort. She has had multiple colonoscopies with the last being done in late 2015 by my partner, Dr. López Gavin. The terminal ileum was intubated and biopsies were taken of the terminal ileum as well as the colon, which were unrevealing. I am being asked by Dr. Cortez to evaluate the patient in evaluation of her nausea, vomiting, and lower quadrant abdominal pain. PAST MEDICAL HISTORY: 1. Adrenal insufficiency. 2. Pseudotumor cerebri. 3. Questionable acute porphyria. 4. Immune deficiency. 5. Chronic narcotic use. 6. Bipolar disorder. 7. Stephan. 8. Asthma. PAST SURGICAL HISTORY: 1. Breast implantation. 2. Tubal ligation. ALLERGIES: Compazine, morphine, penicillin, sulfa. MEDICATIONS: Hydrocortisone 10 mg a day, hyoscyamine 0.125 mg q.i.d., Linzess 290 mg a day, Promethazine 25 mg t.i.d. p.r.n., Carafate 15 mg p.o. q.i.d., oxycodone. SOCIAL HISTORY: No significant tobacco use. Positive social alcohol. FAMILY HISTORY: Grandmother had colon cancer. Mom had thyroid cancer. REVIEW OF SYSTEMS: A 14-point comprehensive review of systems was asked. Pertinent positives and negatives per HPI. PHYSICAL EXAMINATION: VITAL SIGNS: Blood pressure 105/78, pulse 58, temperature 36.7, respirations 16. GENERAL: Awake, alert, oriented Does not appear to be in any distress. HEENT: Anicteric. Moist mucosa. NECK: No JVD. CARDIOVASCULAR: Regular rate and rhythm. Positive S1, S2. No murmurs or gallops appreciated. LUNGS: Clear to auscultation bilaterally. No wheezes , rales, or rhonchi. ABDOMEN: Tender in mid epigastrium and upper quadrants. No guarding. No rebound. Positive bowel sounds. EXTREMITIES: No clubbing, no cyanosis, no edema. NEUROLOGIC: 2 through 12 grossly intact. PSYCH: Normal affect. SKIN: No rash or icterus. MUSCULOSKELETAL: No joint effusions. LABORATORY DATA: WBC's 1.27, hemoglobin 12.2, hematocrit 36.4. Sodium 138, potassium 3.9, chloride 106, bicarb 20, total bilirubin 0.3, AST 16, ALT 16, alkaline phosphatase 52, lipase 71. Beta HCG negative. ASSESSMENT AND PLAN: 1. Nausea-with vomiting. Did have a recent EGD on 10/12/2016 with an ulcer seen 20 cm from the gums, which may represent pill induced esophagitis. Suspect that her nausea and vomiting is due to this ulcer. Recommend PPI therapy and Carafate. Also recommend viscous lidocaine. Biopsies were taken of the ulcer. Will follow up on results. Recommend to take all medications sitting up with significant water. 2. Abdominal pain-lower quadrants. Does have a change in bowel habits. Had an extensive workup with multiple colonoscopies in the past, as well as imaging studies. Suspect that this is a functional symptom with visceral hypersensitivity. This was discussed with the mom and patient in detail. They thought this was more likely an infectious cause. They did want to have a colonoscopy. However, I did have a long discussion with them that a colonoscopy is of lower yield and would recommend to get stool studies due to the extreme concern by the patient and mother. The family had multiple concerns that we were missing a diagnosis. I did discuss getting a 2nd opinion at a tertiary referral center like [facility] or [facility]. 3. History of adrenal insufficiency. 4. History of chronic bronchitis. 5. History of bipolar disorder. 6. History of Stephan. Thank you for the consultation! /[id number]/MODL MTDD
[2016-10-15] MEDS: CEPHALEXIN 250 MG CAP PO SCH ×4 (00:41→17:41)
[2016-10-15] MEDS: PROMETHAZINE HCL 25 MG/ML INJ IVP PRN ×2 (03:09→20:19)
[2016-10-15] MEDS: diphenhydrAMINE 25 MG CAP PO PRN ×2 (04:39→10:26)
[2016-10-15] MEDS: SUCRALFATE 1 GM/10 ML UDCUP PO SCH ×4 (05:13→20:15)
[2016-10-15] MEDS: HYOSCYAMINE SULFATE 0.125 MG TAB PO SCH ×4 (05:13→23:03)
[2016-10-15] MEDS: HYDROCORTISONE 100 MG/2 ML VIAL IVP SCH ×3 (05:13→23:03)
[2016-10-15 05:28] LABS: % IMMATURE GRANULYOCYTES 0.4 % (0.0-1.1); ABSOLUTE IMMATURE GRANULOCYTES 0.03 10^3/uL (0.00-0.10); ADD DIFF? NO; ADD MORPH? NO; ADD SCAN? NO; ATYPICAL LYMPHOCYTE FLAG 30 (0-99); FRAGMENT RBC FLAG 0 (0-99); HEMATOCRIT 33.3 % (38.0-47.0); HEMOGLOBIN 11.1 g/dL (12.6-16.3); LEFT SHIFT FLG 0 (0-99); LIPEMIA HEMOLYSIS FLAG 80 (0-99); MEAN CELL HEMOGLOBIN 31.4 pg (27.9-34.1); MEAN CELL HEMOGLOBIN CONCENTR. 33.3 g/dL (32.4-36.7); MEAN CELL VOLUME 94.1 fL (81.5-99.8); MEAN PLATELET VOLUME 9.7 fL (8.7-11.7); PLATELET CLUMPS FLAG 0 (0-99); PLATELET COUNT 212 10^3/uL (150-400); RED BLOOD CELL COUNT 3.54 10^6/uL (4.18-5.33); RED CELL DISTRIBUTION WIDTH 13.2 % (11.5-15.2)
[2016-10-15 05:48] LABS: ALANINE AMINOTRANSFERASE 25 IU/L (9-52); ALBUMIN 3.2 g/dL (3.5-5.0); ALKALINE PHOSPHATASE 43 IU/L (38-126); ANION GAP 11 mEq/L (8-16); ASPARTATE AMINOTRANSFERASE 16 IU/L (14-46); BILIRUBIN,TOTAL 0.2 mg/dL (0.1-1.4); CALCIUM 8.2 mg/dL (8.5-10.4); CARBON DIOXIDE 21 mEq/l (22-31); CHLORIDE 110 mEq/L (97-110); CREATININE 0.5 mg/dL (0.6-1.0); GLOMERULAR FILTRATION RATE > 60; GLUCOSE 118 mg/dL (70-100); POTASSIUM 4.3 mEq/L (3.5-5.2); SODIUM 142 mEq/L (134-144); TOTAL PROTEIN 5.4 g/dL (6.3-8.2)
[2016-10-15] MEDS: HYDROmorphONE/DILAUDID 6 MG/30 ML PCA IV PRN ×2 (05:53→14:13)
[2016-10-15] MEDS: ONDANSETRON 4 MG/2 ML VIAL IVP PRN ×2 (06:02→10:26)
[2016-10-15] MEDS: D5W 1/2 NS W/ 20 KCl/L 1,000 ML IV SCH ×2 (07:42→17:42)
[2016-10-15] MEDS ORDERED: LIDOCAINE 2% VISCOUS 15 ML UDCUP PO PRN (08:21)
--- NOTE | 2016-10-15 08:25 | SOAPPROG ---
[facility]AP Progress Note Assessment/Plan: Assessment: Plan: 10/14/16 13:42 See dictated consult for details. 10/15/16 08:22 A/P 1. Nausea- with vomiting. S/p EGD last week with ulcer at 20cms. Biopsies pending. Suspect symptoms secondary to ulcer. ON PPI and Carafate. Will add viscous lidocaine. Await biopsy results. 2. Abdominal pain- mainly lower quadrants. Suspect visceral hypersensitivity. 3. Constipation- on Linzess as outpatient. Not available on formulary. Subjective: cc: Follow up nausea and abdominal pain. Feels worse. Objective: Vital Signs Temp Pulse Resp BP Pulse Ox 36.9 C 56 L 16 128/84 H 98 10/15/16 07:40 10/15/16 07:40 10/15/16 07:40 10/15/16 07:40 10/15/16 07:40 Laboratory Results 10/15/16 04:44 10/15/16 04:44 10/14/16 10/15/16 10/16/16 05:59 05:59 05:59 Intake Total 2450 4700 Balance 2450 4700 Physical Exam - Physical Exam General Appearance: alert, no apparent distress EENT: No scleral icterus (R), No scleral icterus (L) Respiratory: lungs clear, normal breath sounds, No crackles, No rales, No rhonchi Cardiac/Chest: regular rate, rhythm Abdomen: normal bowel sounds, soft, No non-tender (tender diffusely), No distended, No guarding, No rebound Skin: normal color, warm/dry Neuro/Psych: no motor/sensory deficits, alert, normal mood/affect, oriented x 3 , No abnormal nurse midwife II-XII ICD10 Worksheet Patient Problems: Problems Problem Status Onset Abdominal pain Acute Bloody diarrhea Acute Colitis Acute Headache Acute
[2016-10-15] MEDS: PANTOPRAZOLE SODIUM 40 MG in NS 100 ML IV SCH ×2 (09:57→20:20)
[2016-10-15] MEDS: ENOXAPARIN 40 MG/0.4 ML SYR SC SCH (09:58)
[2016-10-15] MEDS: DIAZEPAM 5 MG TAB PO PRN ×2 (10:14→14:26)
--- NOTE | 2016-10-15 11:47 | HOSPPROG ---
Hospitalist Progress Note Objective: Vital Signs Temp Pulse Resp BP Pulse Ox 36.6 C 14 L 14 117/83 H 99 10/15/16 10:04 10/15/16 10:04 10/15/16 10:04 10/15/16 10:04 10/15/16 10:04 Laboratory Results 10/15/16 04:44 10/15/16 04:44 10/14/16 10/15/16 10/16/16 05:59 05:59 05:59 Intake Total 2450 4700 360 Balance 2450 4700 360 Laboratory Tests 10/13/16 10/15/16 12:01 04:44 WBC 11.27 H 8.07 Hgb 12.3 L 11.1 L ICD10 Worksheet Patient Problems: Problems Problem Status Onset Headache Acute Colitis Acute Bloody diarrhea Acute Abdominal pain Acute
[2016-10-15] MEDS ORDERED: diphenhydrAMINE 25 MG CAP PO PRN (14:18)
--- NOTE | 2016-10-15 16:32 | HOSPPROG ---
Hospitalist Progress Note Assessment/Plan: year-old female admitted with abdominal pain. Patient is new to me today. Today she continues to complain of abdominal pain. Today I reviewed her medical record here in the EMR and [facility]. In addition I have called the [facility], the pain clinic where she is seen and spoken with Josefina Andrews. I have attempted to speak with her other physicians that she reports she is seeing or making appointments. Additionally she assumed that we were going to refer her for the to the [facility] for further care. I informed her that we do not referred to the [facility] but that she can do that herself. -acute on chronic abdominal pain and nausea. 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 Reviewing her record that goes back to 2009 and we have never had any positive findings. She did in fact have a cholecystectomy in 2009 but there been no other positive findings regarding this abdominal pain. -questionable diagnosis of porphyria: This is never been confirmed. It has been worked up by believe by GI of the [facility] and simply never confirmed. Please refer to a consultation by Dr. Rafael Simpson in the EMR dated 09/30/2012 -question of Sherman's disease: She had a endocrine workup for this in 2012. 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 She does not have true hypopituitarism. -question of common variable immunodeficiency: The the patient was worked up by Infectious Disease in this evaluation was negative. That dates to 2012. -chronic pain seeking behavior: Patient is currently on a pain contract with the [facility] and seeing Josefinakelly Andrews. She can be reached at . I spoke with miss Andrews. The pain contract consists of Jackson 5 mg tablets, 1 p.o. four times daily. A 1 month supply. This Darryl informs me that if she is receiving IV Dilaudid or other narcotic pain medication she has broken her contract and she no longer can be seen at the [facility]. Ms. Tammy mendes also believes that she is a Munchausen syndrome and referred her to a psychiatric nurse named Jason Finch in [place]. She has not been seen by Ms. House. -constipation: We can continue the current anti spasmodic care. She has been prescribed Linzess which is not on the formulary. Overall with it seems that this patient's complaints and problems or primarily factitious. She has a very long history of care here in the [facility] and in the [facility]. She has seen numerous fatigue physicians. Though she reports serious nausea and vomiting and inability eat she remains and appears well-nourished and has not lost measurable weight. Plan: Stool studies and continue her antibiotics of Keflex for the cellulitis. I will stop her [employer] Dilaudid. This is a terribly unfortunate situation but this lady does not have measurable and organic medical problems. I strongly suggested we referred to a psychiatrist and have an evaluation for Munchausen syndrome. Time: 75 minutes I spoken with Gastroenterology the [facility] and reviewed the entire medical record in the EMR and [facility]. Subjective: Reports nausea vomiting and abdominal pain. Objective: Vital Signs Temp Pulse Resp BP Pulse Ox 36.8 C 67 12 119/87 H 99 10/15/16 16:00 10/15/16 16:00 10/15/16 16:00 10/15/16 16:00 10/15/16 16:00 Laboratory Results 10/15/16 04:44 10/15/16 04:44 10/14/16 10/15/16 10/16/16 05:59 05:59 05:59 Intake Total 2450 4700 360 Balance 2450 4700 360 - Time Spent With Patient Time Spent with Patient: greater than 35 minutes Time Spent with Patient: Greater than 35 minutes spent on this patients care, greater than 50% of time spent counseling, educating, and coordinating care regarding the above mentioned plan. - Pending Discharge Pending Discharge Within 24 Hours: Yes Pending Discharge Date: 10/16/16 Pending Discharge Time: 11:00 - Physical Exam Constitutional: no apparent distress Eyes: PERRL, anicteric sclera Ears, Nose, Mouth, Throat: moist mucous membranes, hearing normal Cardiovascular: regular rate and rhythym, no murmur, rub, or gallop Respiratory: no respiratory distress, no rales or rhonchi Gastrointestinal: normoactive bowel sounds, soft, non-tender abdomen, tenderness (Tenderness but not reproducible and no rebound) Skin: warm Musculoskeletal: full muscle strength Neurologic: AAOx3, CN II-XII Intact ICD10 Worksheet Patient Problems: Problems Problem Status Onset Abdominal pain Acute Bloody diarrhea Acute Colitis Acute Headache Acute
[2016-10-15] MEDS ORDERED: HYDROCODONE/APAP 5/325 TAB PO PRN (17:29)
[2016-10-16] MEDS: CEPHALEXIN 250 MG CAP PO SCH ×2 (00:39→08:00)
[2016-10-16 03:54] VITALS: BP 117/75; PULSE 45; RESP 16; TEMP 97.8; O2SAT 97
[2016-10-16] MEDS: ENOXAPARIN 40 MG/0.4 ML SYR SC SCH (08:00)
[2016-10-16] MEDS: HYDROCORTISONE 100 MG/2 ML VIAL IVP SCH (08:00)
[2016-10-16] MEDS: SUCRALFATE 1 GM/10 ML UDCUP PO SCH (08:00)
[2016-10-16] MEDS: HYOSCYAMINE SULFATE 0.125 MG TAB PO SCH (08:00)
[2016-10-16] MEDS: PANTOPRAZOLE SODIUM 40 MG in NS 100 ML IV SCH (08:00)
--- NOTE | 2016-10-16 08:14 | HOSPPROG ---
Hospitalist Progress Note Assessment/Plan: Beverly is a 31 year-old female admitted with abdominal pain. Today she continues to complain of abdominal pain. Today is my first encounter with the patient, chart reviewed. Evaluated the patient with Dr Cason. It was difficult to assess Beverly/ she was crying throughout my interview. Her mom requested a discharge/ PPI and Carafate prescriptions were given -acute on chronic abdominal pain and nausea. -s/p EGD last week which showed an ulcer/PPI -avoid escalating narcotics -visceral hypersensitivity -questionable diagnosis of porphyria -never confirmed -has had w/u Dr Simpson -question of Beaverton's disease - She had a endocrine workup for this in 2012. -question of common variable immunodeficiency: - The the patient was worked up by Infectious Disease in this evaluation was negative. -chronic pain seeking behavior - Patient is currently with the [facility] and seeing Josefina Andrews ( [phone]) -to f/u with her -constipation: -on Linzess in the OP setting -cellulitis -cont abx per PCP Plan: dc home with her mom/ recommending further f/u with her psychiatrist Jason Finch in [facility]/ patient's mom said she has seen this psychiatris Subjective: Beverly is crying and saying her throat hurts and that her stomach hurts. Objective: Vital Signs Temp Pulse Resp BP Pulse Ox 36.6 C 45 L 16 117/75 97 10/16/16 03:51 10/16/16 03:51 10/16/16 03:51 10/16/16 03:51 10/16/16 03:51 Laboratory Results 10/15/16 04:44 10/15/16 04:44 10/15/16 10/16/16 10/17/16 05:59 05:59 05:59 Intake Total 4700 7475.9 Output Total 5000 Balance 4700 2475.9 - Physical Exam Constitutional: uncomfortable Eyes: PERRL Respiratory: no respiratory distress Skin: warm Musculoskeletal: other (moving all extremities) Psychiatric: other (crying /mom is answering questions) ICD10 Worksheet Patient Problems: Problems Problem Status Onset Abdominal pain Acute Bloody diarrhea Acute Colitis Acute Headache Acute
--- NOTE | 2016-10-16 18:03 | GDS ---
[f rep st] DISCHARGE SUMMARY DISCHARGE DIAGNOSES: 1. Acute on chronic abdominal pain with associated nausea. 2. Questionable diagnosis of porphyria. 3. Questionable diagnosis of Waterford's disease. 4. Question of common variable immunodeficiency. 5. Chronic pain seeking behavior. 6. Constipation. 7. Cellulitis. CONSULTATIONS DURING STAY: Dr. Sky Parikh. BRIEFLY: The patient is a 31-year-old female with a complicated past medical history. She has been admitted multiple times for abdominal pain, nausea, and vomiting. 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 She was admitted in February with similar symptoms, and had a colonoscopy which was f airly normal. She had been doing well until September 18 when her steroids were discontinued in order to get blood work. She said she had an addisonian crisis and was hospitalized at that time. She has b een having lower abdominal pain. Today, during my interview, she was having ongoing throat pain. D uring her stay, she was seen and evaluated by Dr. Sky Parkih with Gastroenterology. He noted that he r EGD last week showed ulcers at 20 cm. The biopsies are pending. He suspected that her nausea was relates to the ulcer. She was discharged on a PPI and Carafate. The lidocaine did not help her. He also noted that her abdominal pain was likely secondary of visceral hypersensitivity. Today, she and her mom requested discharge. She was discharged with a PPI. She was discharged home, and keon mmended she get close followup with her psychiatrist for further evaluation. HOSPITAL COURSE: 1. Acute on chronic abdominal pain with associated nausea. Discharged on a PPI and Carafate, likel y with associated visceral hypersensitivity. 2. Questionable diagnosis of porphyria. This was never confirmed. 3. Question of Arash's disease. She had an endocrine workup for this in 2012. 4. Question of common variable immunodeficiency. She had a workup by an infectious disease team, w hic was negative. 5. Chronic pain seeking behavior. She is at the [facility], and seeing Josefina Andrews. I spoke with Josefina today. She will follow up with the patient. There is a concern that she has is sues with endometriosis and needs further workup with a marketing communications specialist. 6. Constipation, on Linzess. 7. Cellulitis. Continue antibiotics per her PCP. DISCHARGE CONDITION: Stable. Blood pressure was 117/75, heart rate of 45, respiratory rate of 16, O2 saturation on room air 97%, temperature 36.6 Celsius. MEDICATIONS AT DISCHARGE: Please see the EMR. DISCHARGE INSTRUCTIONS: 1. She has an appointment with GI tomorrow for further followup. I have on the discharge recommend ed that the patient and her mom discuss further evaluation on how long she should be on the PPI b.i. d. 2. If she has fever, chills, chest pain, or shortness of breath return to the ER. Greater than 30 minutes discharging and coordinating care. Copy requested to: Josefina Andrews [facility] /[id number]/MODL
== END 2016-10-16 09:22 | disposition home or self-care (01) | DRG 392 ==
LOC: F3E 14:06 → OBSVTOIN 15:31
PROVIDERS: ADMIT Internal Medicine Pulmonary Disease; ATTEND Internal Medicine
DX: K52.29 Other allergic and dietetic gastroenteritis and colitis (principal); K22.10 Ulcer of esophagus without bleeding; L03.90 Cellulitis, unspecified; E27.40 Unspecified adrenocortical insufficiency; G89.29 Other chronic pain; K59.00 Constipation, unspecified; F31.9 Bipolar disorder, unspecified; E06.3 Autoimmune thyroiditis; T50.995A Adverse effect of other drugs, medicaments and biological substances, initial encounter
CPT/HCPCS: 96365; J0690; J1100; J1170; J1650; J1885; J2405; J2550; J2704; J3010

== ENCOUNTER 2018-04-14 10:40 | Emergency (ER) | payer MEDICAID ==
[2018-04-14 13:35] LABS: PLATELET COUNT 264 10^3/uL (150-400)
[2018-04-14] MEDS ORDERED: IOHEXOL 350mgI/ML (OMNIPAQUE) 150 ML BTL IV ONE (13:49)
--- NOTE | 2018-04-14 14:26 | EDPHY ---
H & P Stated Complaint: hx chronic pain/ludwigs angina/pain/fever usually seen at [facility] Time Seen by Provider: 04/14/18 12:49 HPI/ROS: CHIEF COMPLAINT: Chronic facial pain, prior dental surgery, concerned about osteomyelitis or abscess HISTORY OF PRESENT ILLNESS: The patient has a history of chronic facial pain. She reportedly underwent a tooth extraction in September. Since that time she has been suffering with chronic pain. The patient has been on a number of antibiotics. She also has a history of chronic pain [facility] The patient's dentist brought her to the emergency department today concerned about the possibility of Tito's angina. She has been on clindamycin for the past day. The patient reports symptoms of trismus. She denies nuchal rigidity. She denies any acute neurologic symptoms. REVIEW OF SYSTEMS: A comprehensive 10 point review of systems is otherwise negative aside from elements mentioned in the history of present illness. Source: Patient Exam Limitations: No limitations - Personal History LMP (Females 10-55): 22-28 Days Ago Current Tetanus/Diphtheria Vaccine: Yes Current Tetanus Diphtheria and Acellular Pertussis (TDAP): Yes - Medical/Surgical History Hx Asthma: No Hx Chronic Respiratory Disease: No Hx Diabetes: No Hx Cardiac Disease: No Hx Renal Disease: No Hx Cirrhosis: No Hx Alcoholism: No Hx HIV/AIDS: No Hx Splenectomy or Spleen Trauma: No Other PMH: ludwigs angina/chronic pain migraines [facility] for pain management - Social History Smoking Status: Never smoked - Physical Exam Exam: General Appearance: Alert, no distress Eyes: Pupils equal and round no pallor or injection ENT, Mouth: No intraoral erythema, drainage or sinus tracts noted Respiratory: There are no retractions, lungs are clear to auscultation Cardiovascular: Regular rate and rhythm Gastrointestinal: Abdomen is soft and nontender, no masses, bowel sounds normal Neurological: A&O, normal motor function, normal sensory exam, normal cranial nerves Skin: Acne noted on the face, patient does have a deep crater in the area of a prior pustule on the right side of her face without surrounding erythema or fluctuance. Musculoskeletal: Neck is supple nontender Extremities: symmetrical, full range of motion Psychiatric: Patient is oriented X 3, there is no agitation Constitutional: Initial Vital Signs Temperature (C) 37.1 C 04/14/18 10:46 Heart Rate 104 H 01/28/19 10:46 Respiratory Rate 18 04/14/18 10:46 Blood Pressure 107/62 04/14/18 10:46 O2 Sat (%) 99 04/14/18 10:46 O2 Delivery Mode Room Air Allergies/Adverse Reactions: metoclopramide [From Reglan] Allergy (Verified 04/14/18 10:44) morphine Allergy (Verified 04/14/18 10:44) Penicillins Allergy (Verified 04/14/18 10:44) prochlorperazine [From Compazine] Allergy (Verified 04/14/18 10:44) Sulfa (Sulfonamide Antibiotics) Allergy (Verified 04/14/18 10:44) tramadol Allergy (Verified 04/14/18 10:44) Home Medications: Medication Instructions Recorded Acyclovir 04/14/18 Adderall 10 MG (*) 04/14/18 Clindamycin 04/14/18 Gabapentin 04/14/18 Nucynta 04/14/18 Phenergan 04/14/18 Solu-Cortef 1,000 mg Vial 04/14/18 Tizanidine HCl 04/14/18 Valium 5 MG (*) 04/14/18 Medical Decision Making - Diagnostics Imaging Results: Imaging Impressions Neck CT 04/14/18 13:29 Impression: 1. Right facial cellulitis anterior to the right side of the mandible just to the right of the midline with gas in the soft tissues. 2. However, no evidence of drainable abscess or definite osteomyelitis. 3. Left lobe thyroid 1.2 x 1 cm probably benign nodule for which follow-up ultrasound thyroid is recommended in one year. Findings and recommendations discussed with Emergency Department physician, Naif Arguello, at 1418 hour, 04/14/2018. Final report concurs with initial preliminary interpretation. ED Course/Re-evaluation: The patient presents to the ED for evaluation of left-sided mandibular pain. The patient did have a remote history of a dental surgery in September and has been chronically irritated since that time. The patient was noted to be afebrile. She has no clinical evidence of meningitis. I do not appreciate an obvious space occupying abscess on her exam. The patient was taken for CT scan of the neck which demonstrates no evidence of an drainable abscess. She does have evidence of cellulitis noted in the soft tissues of the right face however the patient is totally asymptomatic in that location. She does have a pimple which has resulted in a deep erosion on the face which I believe likely is causing the radiographic findings noted by the CT. The patient is currently taking clindamycin which has been prescribed by her dentist. The patient will be referred to our oral surgeon for further evaluation. I do not see an indication for hospitalization in IV antibiotics at this point time. The patient was given IV dose of Toradol in the emergency department. Patient has no radiographic evidence of a left-sided abscess, infection or other obvious explanation of her symptoms. Differential Diagnosis: Differential diagnosis considered includes intraoral abscess, cellulitis, Tito 's angina, dehydration, sepsis - Data Points Laboratory Results: Laboratory Results 04/14/18 13:26 04/14/18 13:26 04/14/18 04/14/18 13: 13:26 WBC 6.25 10^3/uL 10^3/uL (3.80-9.50) RBC 4.16 10^6/uL L 10^6/uL (4.18-5.33) Hgb 13.0 g/dL g/dL (12.6-16.3) Hct 37.9 % L % (38.0-47.0) MCV 91.1 fL fL (81.5-99.8) MCH 31.3 pg pg (27.9-34.1) MCHC 34.3 g/dL g/dL (32.4-36.7) RDW 13.0 % % (11.5-15.2) Plt Count 264 10^3/uL 10^3/uL (150-400) MPV 8.9 fL fL (8.7-11.7) Neut % (Auto) 68.2 % % (39.3-74.2) Lymph % (Auto) 25.6 % % (15.0-45.0) Spink % (Auto) 5.0 % % (4.5-13.0) Eos % (Auto) 0.5 % L % (0.6-7.6) Baso % (Auto) 0.5 % % (0.3-1.7) Nucleat RBC Rel Count 0.0 % % (0.0-0.2) Absolute Neuts (auto) 4.27 10^3/uL 10^3/uL (1.70-6.50) Absolute Lymphs (auto) 1.60 10^3/uL 10^3/uL (1.00-3.00) Absolute Monos (auto) 0.31 10^3/uL 10^3/uL (0.30-0.80) Absolute Eos (auto) 0.03 10^3/uL 10^3/uL (0.03-0.40) Absolute Basos (auto) 0.03 10^3/uL 10^3/uL (0.02-0.10) Absolute Nucleated RBC 0.00 10^3/uL 10^3/uL (0-0.01) Immature Gran % 0.2 % % (0.0-1.1) Immature Gran # 0.01 10^3/uL 10^3/uL (0.00-0.10) Sodium 137 mEq/L mEq/L (135-145) Potassium 4.2 mEq/L mEq/L (3.5-5.2) Chloride 110 mEq/L mEq/L (97-110) Carbon Dioxide 20 mEq/l L mEq/l (22-31) Anion Gap 7 mEq/L mEq/L (6-14) BUN 13 mg/dL mg/dL (7-23) Creatinine 0.7 mg/dL mg/dL (0.6-1.0) Estimated GFR > 60 Glucose 96 mg/dL mg/dL (70-100) Calcium 9.4 mg/dL mg/dL (8.5-10.4) Departure - Departure Disposition: Home, Routine, Self-Care Clinical Impression: Cellulitis of intraoral region Condition: Good Additional Instructions: 1. Please take clindamycin as directed. 2. I do recommend following up with an oral surgeon. You have been given the number of several surgeons here in [place]. Referrals: Mishel Jin MD [Medical Doctor] - As per Instructions Michael Moreno DDS [Doctor of Dental Surgery] - As per Instructions Avni Murray DDS [Doctor of Dental Surgery] - As per Instructions
[2018-04-14] MEDS ORDERED: KETOROLAC 30 MG/1 ML SDV IVP ONE (14:55)
[2018-04-14 15:07] VITALS: BP 122/86
== END 2018-04-14 15:35 | disposition home or self-care (01) ==
LOC: MERGE 10:40
DX: K12.2 Cellulitis and abscess of mouth (principal); Z98.890 Other specified postprocedural states
CPT/HCPCS: 96374; J1885; Q9967

== ENCOUNTER 2018-05-23 09:42 | Emergency (ER) | payer MEDICAID ==
[2018-05-23 09:49] VITALS: BP 112/80
--- NOTE | 2018-05-23 09:59 | EDPHY ---
H & P Stated Complaint: pelvic pain/dysuria Time Seen by Provider: 05/23/18 09:58 HPI/ROS: HPI: This is a 32-year-old female who presents with Chief Complaint: pelvic pain/dysuria Location: Quality: Burning with urination, suprapubic pressure and fullness Duration: 4 days Signs and Symptoms: no fever, no nausea, no vomiting, no hematemesis, no blood in stool, no abdominal bloating, no diarrhea, no back pain, no urinary symptoms , no vaginal bleeding, no indigestion, no chest pain, no shortness of breath Timing: Acute on chronic Severity: 10/25 Context: Patient presents with 4 day history of suprapubic pressure and fullness with burning with urination. [facility] [place] and diagnosed with candidiasis vulval vaginitis. She was given Diflucan 150 mg and reports relief of vaginal discharge. She denies any fever, back pain, vomiting, diarrhea. She reports that she has to give herself "high enemas and "every day due to chronic constipation. LMP was 1-7 days ago. Modifying Factors: Diflucan Comment: ROS: A comprehensive 10 system review of systems is otherwise negative aside from elements mentioned in the history of present illness. MEDICAL/SURGICAL/SOCIAL HISTORY: Medical history: Tito angina/chronic pain, migraines [place] [facility] for pain management. LMP 1-7 days ago. Surgical history: Denies Social history: Never smoked. Family history noncontributory. CONSTITUTIONAL: Extremely well-appearing adult white female, awake and alert, no obvious distress HEENT: Atraumatic and normocephalic, PERRL, EOMI. Nares patent; no rhinorrhea; no nasal mucosal edema. Tympanic membranes clear. Oropharynx clear, no exudate and moist pink mucosa. Airway patent. No lymphadenopathy. No meningismus. Cardiovascular: Normal S1/S2, tachycardia, regular rhythm, without murmur rub or gallop. PULMONARY/CHEST: Symmetrical and nontender. Clear to auscultation bilaterally. Good air movement. No accessory muscle usage. ABDOMEN: Soft, nondistended, moderate suprapubic tenderness, no rebound, + guarding, no peritoneal signs, no masses or organomegaly. No CVAT. EXTREMITIES: 2/2 pulses, strength 5/5, no deformities, no clubbing, no cyanosis or edema. NEUROLOGICAL: no focal neuro deficits. GCS 15. SKIN: Warm and dry, no erythema. no rash. Good capillary refill. Source: Patient Exam Limitations: No limitations - Personal History LMP (Females 10-55): 1-7 Days Ago Current Tetanus Diphtheria and Acellular Pertussis (TDAP): Yes Tetanus Vaccine Date: < 10 years - Medical/Surgical History Hx Asthma: No Hx Chronic Respiratory Disease: No Hx Diabetes: No Hx Cardiac Disease: No Hx Renal Disease: No Hx Cirrhosis: No Hx Alcoholism: No Hx HIV/AIDS: No Hx Splenectomy or Spleen Trauma: No Other PMH: ludwigs angina/chronic pain migraines [facility] physical med for pain management - Social History Smoking Status: Never smoked Constitutional: Initial Vital Signs Temperature (C) 36.7 C 05/23/18 09:47 Heart Rate 123 H 05/23/18 09:47 Respiratory Rate 18 05/23/18 09:47 Blood Pressure 112/80 05/23/18 09:47 O2 Sat (%) 97 05/23/18 09:47 O2 Delivery Mode Room Air Allergies/Adverse Reactions: Sulfa (Sulfonamide Antibiotics) Allergy (Severe, Verified 05/23/18 09:45) Other-Enter Comments morphine [Morphine] Allergy (Intermediate, Verified 05/23/18 09:45) Hives prochlorperazine edisylate [From Compazine] Allergy (Intermediate, Verified 11/03 09:45) Anxiety Penicillins Allergy (Mild, Verified 05/23/18 09:45) Hives metoclopramide [From Reglan] Allergy (Verified 05/23/18 09:45) prochlorperazine [From Compazine] Allergy (Verified 05/23/18 09:45) tramadol Allergy (Verified 05/23/18 09:45) VERSED Allergy (Mild, Uncoded 10/13/16 14:13) Other-Enter Comments Home Medications: Medication Instructions Recorded Cyclobenzaprine [Flexeril 10 MG 10 mg PO TID PRN 10/13/16 (*)] Diazepam [Valium 5 MG (*)] 5 - 10 mg PO Q6HRS PRN 10/13/16 Hydrocortisone [Cortef 10 mg (*)] 10 mg PO DAILY 10/13/16 Hyoscyamine Sulfate [Levsin, 0.125 mg PO QID 10/13/16 Hyomax-Sl 0.125 mg (*)] Linaclotide [Linzess] 290 mcg PO DAILY 10/13/16 Promethazine HCl 25 mg RC TID PRN 10/13/16 Promethazine HCl [Phenergan 25mg 25 mg PO TID PRN 10/13/16 (*)] oxyCODONE HCL/ACETAMINOPHEN 1 each PO Q6H PRN 10/13/16 [Percocet 7.5-325 mg Tablet] Pantoprazole Sodium [Protonix 40mg 40 mg PO BID #60 tab 10/16/16 (*)] Sucralfate [Carafate Oral Liquid 15 ml PO QID #100 ml 10/16/16 100 mg/ml] Acyclovir 04/14/18 Adderall 10 MG (*) 04/14/18 Gabapentin 04/14/18 Nucynta 04/14/18 Phenergan 04/14/18 Solu-Cortef 1,000 mg Vial 04/14/18 Tizanidine HCl 04/14/18 Valium 5 MG (*) 04/14/18 Medical Decision Making - Diagnostics Imaging Results: Imaging Impressions Pelvic/Renal Ultrasound 05/23/18 10:03 Impression: Normal ultrasound pelvis. Findings and recommendations discussed with Emergency Department physician, Melanie Francisco at 11:53 hour, 05/23/2018. Final report concurs with initial preliminary interpretation. ED Course/Re-evaluation: Vital signs reviewed and show mild tachycardia. IV access, laboratory studies, urinalysis, pelvic ultrasound ordered No right lower quadrant tenderness or other signs worrisome for appendicitis. Given 1 L normal saline, IV Toradol 30 mg, IV promethazine 12.5 mg 1012: Notified by RN that patient reports that she cannot take normal saline as she has an allergy to it. 1142: Labs reviewed. No signs of leukocytosis/anemia/platelet dysfunction/EM/ elevated LFTs/electrolyte imbalance/pancreatitis. Urinalysis is negative. Patient will be given a referral to Urology for further evaluation/bladder studies. This patient was seen under the supervision of my secondary supervising physician. I evaluated care for this patient with attending. Discussed this patient with Dr. Knight. Differential Diagnosis: Abdominal pain in a female including but not limited to ovarian cyst, pelvic inflammatory disease, ovarian torsion, urinary tract infection, and appendicitis. - Data Points Laboratory Results: Laboratory Results 05/23/18 10:59 05/23/18 10:59 05/23/18 05/23/18 05/23/18 10:59 10:59 10:59 WBC 6.26 10^3/uL 10^3/uL (3.80-9.50) RBC 4.29 10^6/uL 10^6/uL (4.18-5.33) Hgb 13.3 g/dL g/dL (12.6-16.3) Hct 38.8 % % (38.0-47.0) MCV 90.4 fL fL (81.5-99.8) MCH 31.0 pg pg (27.9-34.1) MCHC 34.3 g/dL g/dL (32.4-36.7) RDW 13.3 % % (11.5-15.2) Plt Count 298 10^3/uL 10^3/uL (150-400) MPV 9.0 fL fL (8.7-11.7) Neut % (Auto) 56.0 % % (39.3-74.2) Lymph % (Auto) 37.1 % % (15.0-45.0) [place] % (Auto) 6.1 % % (4.5-13.0) Eos % (Auto) 0.3 % L % (0.6-7.6) Baso % (Auto) 0.3 % % (0.3-1.7) Nucleat RBC Rel Count 0.0 % % (0.0-0.2) Absolute Neuts (auto) 3.51 10^3/uL 10^3/uL (1.70-6.50) Absolute Lymphs (auto) 2.32 10^3/uL 10^3/uL (1.00-3.00) Absolute Monos (auto) 0.38 10^3/uL 10^3/uL (0.30-0.80) Absolute Eos (auto) 0.02 10^3/uL L 10^3/uL (0.03-0.40) Absolute Basos (auto) 0.02 10^3/uL 10^3/uL (0.02-0.10) Absolute Nucleated RBC 0.00 10^3/uL 10^3/uL (0-0.01) Immature Gran % 0.2 % % (0.0-1.1) Immature Gran # 0.01 10^3/uL 10^3/uL (0.00-0.10) Sodium 138 mEq/L mEq/L (135-145) Potassium 4.3 mEq/L mEq/L (3.5-5.2) Chloride 105 mEq/L mEq/L (97-110) Carbon Dioxide 21 mEq/l L mEq/l (22-31) Anion Gap 12 mEq/L mEq/L (6-14) BUN 9 mg/dL mg/dL (7-23) Creatinine 0.7 mg/dL mg/dL (0.6-1.0) Estimated GFR > 60 Glucose 102 mg/dL H mg/dL (70-100) Calcium 9.2 mg/dL mg/dL (8.5-10.4) Total Bilirubin 0.2 mg/dL mg/dL (0.1-1.4) Conjugated Bilirubin 0.2 mg/dL mg/dL (0.0-0.5) Unconjugated Bilirubin 0.0 mg/dL mg/dL (0.0-1.1) AST 15 IU/L IU/L (14-46) ALT 19 IU/L IU/L (9-52) Alkaline Phosphatase 53 IU/L IU/L (38-126) Total Protein 6.9 g/dL g/dL (6.3-8.2) Albumin 4.3 g/dL g/dL (3.5-5.0) Lipase 70 IU/L IU/L (23-300) Beta HCG, Qual NEGATIVE Urine Color Urine Appearance Urine pH Ur Specific [place] Urine Protein Urine Ketones Urine Blood Urine Nitrate Urine Bilirubin Urine Urobilinogen Ur Leukocyte Esterase Urine Glucose 05/23/18 09:50 WBC RBC Hgb Hct MCV MCH MCHC RDW Plt Count MPV Neut % (Auto) Lymph % (Auto) [place] % (Auto) Eos % (Auto) Baso % (Auto) Nucleat RBC Rel Count Absolute Neuts (auto) Absolute Lymphs (auto) Absolute Monos (auto) Absolute Eos (auto) Absolute Basos (auto) Absolute Nucleated RBC Immature Gran % Immature Gran # Sodium Potassium Chloride Carbon Dioxide Anion Gap BUN Creatinine Estimated GFR Glucose Calcium Total Bilirubin Conjugated Bilirubin Unconjugated Bilirubin AST ALT Alkaline Phosphatase Total Protein Albumin Lipase Beta HCG, Qual Urine Color YELLOW Urine Appearance HAZY Urine pH 5.0 (5.0-7.5) Ur Specific [place] 1.010 (1.002-1.030) Urine Protein NEGATIVE (NEGATIVE) Urine Ketones NEGATIVE (NEGATIVE) Urine Blood NEGATIVE (NEGATIVE) Urine Nitrate NEGATIVE (NEGATIVE) Urine Bilirubin NEGATIVE (NEGATIVE) Urine Urobilinogen NEGATIVE EU EU (0.2-1.0) Ur Leukocyte Esterase NEGATIVE (NEGATIVE) Urine Glucose NEGATIVE (NEGATIVE) Medications Given: Discontinued Medications Sodium Chloride (Ns) 1,000 mls @ 0 mls/hr IV EDNOW ONE; Wide Open PRN Reason: Protocol Stop: 05/23/18 10:07 Last Admin: 05/23/18 10:18 Dose: Not Given Ketorolac Tromethamine (Toradol) 30 mg IVP EDNOW ONE Stop: 05/23/18 10:04 Last Admin: 05/23/18 10:54 Dose: 30 mg Promethazine HCl (Phenergan) 12.5 mg IVP ONCE ONE Stop: 05/23/18 10:05 Last Admin: 05/23/18 10:54 Dose: 12.5 mg Departure - Departure Disposition: Home, Routine, Self-Care Clinical Impression: Dysuria, Feared condition not demonstrated Condition: Good Instructions: Dysuria (ED) Additional Instructions: Consume a minimum of 8-10 glasses of water or electrolyte fluid replacement drinks that include Gatorade, Powerade, Pedialyte. Take azo [id number] as needed for dysuria. Follow-up with Urology for further evaluation. Referrals: Elliot Valera MD [Primary Care Provider] - As per Instructions Ofelia Anne MD [Medical Doctor] - As per Instructions
[2018-05-23] MEDS ORDERED: KETOROLAC 30 MG/1 ML SDV IVP ONE (10:03)
[2018-05-23] MEDS ORDERED: PROMETHAZINE HCL 25 MG/ML INJ IVP ONE (10:04)
[2018-05-23] MEDS ORDERED: NS 1,000 ML IV ONE (10:06)
[2018-05-23 11:20] LABS: PLATELET COUNT 298 10^3/uL (150-400)
== END 2018-05-23 12:16 | disposition home or self-care (01) ==
DX: R30.0 Dysuria (principal); E86.9 Volume depletion, unspecified
CPT/HCPCS: 96374; J1885; J2550

== ENCOUNTER → 2018-05-23 | Outpatient (CLI) | payer MEDICAID ==
[~2018-05-23] MED LIST: GADOBUTROL 10 ML VIAL IVP ONE
== END ==
LOC: FIMAGING 06:21
PROVIDERS: ATTEND Internal Medicine
DX: M51.34 Other intervertebral disc degeneration, thoracic region (principal); M51.36 Other intervertebral disc degeneration, lumbar region; M51.26 Other intervertebral disc displacement, lumbar region; M54.2 Cervicalgia; R29.898 Other symptoms and signs involving the musculoskeletal system
CPT/HCPCS: A9585

== ENCOUNTER 2018-07-25 13:48 | Emergency (ER) | payer MEDICAID ==
--- NOTE | 2018-07-25 14:00 | EDPHY ---
H & P Stated Complaint: R BREAST LESION/HAD US TO R/O INFECTION/ALSO ABD PAIN - Personal History LMP (Females 10-55): 8-14 Days Ago Current Tetanus Diphtheria and Acellular Pertussis (TDAP): Yes Tetanus Vaccine Date: < 10 years - Medical/Surgical History Hx Asthma: No Hx Chronic Respiratory Disease: No Hx Diabetes: No Hx Cardiac Disease: No Hx Renal Disease: No Hx Cirrhosis: No Hx Alcoholism: No Hx HIV/AIDS: No Hx Splenectomy or Spleen Trauma: No Other PMH: ludwigs angina/chronic pain migraines [place] physical med for pain management - Social History Smoking Status: Never smoked <Justice Knight A - Last Filed: 07/25/18 14:43> <Jl Gray - Last Filed: 07/25/18 16:40> Time Seen by Provider: 07/25/18 13:59 Constitutional: Initial Vital Signs Temperature (C) 36.7 C 07/25/18 13:54 Heart Rate 140 H 07/25/18 13:54 Respiratory Rate 18 07/25/18 13:54 Blood Pressure 130/91 H 07/25/18 13:54 O2 Sat (%) 96 07/25/18 13:54 O2 Delivery Mode Room Air Allergies/Adverse Reactions: Sulfa (Sulfonamide Antibiotics) Allergy (Severe, Verified 07/25/18 13:52) Other-Enter Comments morphine [Morphine] Allergy (Intermediate, Verified 07/25/18 13:52) Hives prochlorperazine edisylate [From Compazine] Allergy (Intermediate, Verified 01/03 13:52) Anxiety Penicillins Allergy (Mild, Verified 07/25/18 13:52) Hives metoclopramide [From Reglan] Allergy (Verified 07/25/18 13:52) prochlorperazine [From Compazine] Allergy (Verified 07/25/18 13:52) tramadol Allergy (Verified 07/25/18 13:52) VERSED Allergy (Mild, Uncoded 10/13/16 14:13) Other-Enter Comments Home Medications: Medication Instructions Recorded Cyclobenzaprine [Flexeril 10 MG 10 mg PO TID PRN 10/13/16 (*)] Diazepam [Valium 5 MG (*)] 5 - 10 mg PO Q6HRS PRN 10/13/16 Hydrocortisone [Cortef 10 mg (*)] 10 mg PO DAILY 10/13/16 Promethazine HCl 25 mg RC TID PRN 10/13/16 Promethazine HCl [Phenergan 25mg 25 mg PO TID PRN 10/13/16 (*)] Adderall 10 MG (*) 04/14/18 Gabapentin 04/14/18 Phenergan 04/14/18 Solu-Cortef 1,000 mg Vial 04/14/18 Tizanidine HCl 04/14/18 Valium 5 MG (*) 04/14/18 Cephalexin [Keflex (RX)] 500 mg PO TID #30 cap 07/25/18 Doxycycline Hyclate 100 mg PO BID #20 tablet 07/25/18 Ketorolac Tromethamine 10 mg PO Q6H PRN #16 tab 07/25/18 Medical Decision Making - Diagnostics Imaging: I viewed and interpreted images myself <Justice Knight - Last Filed: 07/25/18 14:43> - Diagnostics Imaging: Discussed imaging studies w/ score caller Radiologist <Jl Gray - Last Filed: 07/25/18 16:40> - Diagnostics Imaging Results: Imaging Impressions Breast Ultrasound 07/25/18 10:00 Impression: 1. Benign breast findings. BI-RADS 2. 2. Inflammatory changes are noted. Recommendation: Clinical correlation for assessment of inflammatory changes. Findings and follow-up recommendations were reviewed in detail with the patient. Additionally, a preliminary report was called to the healthcare provider's office. [facility] will send a result letter to the patient. Breast Tomosynthesis Diagnostic 07/25/18 10:40 Impression: Palpable areas and skin lesion; need additional imaging evaluation, BI-RADS 0. Recommendation: Targeted breast ultrasound bilaterally which will be performed later today. [facility] will send a result letter to the patient. Negative mammography should not preclude additional workup of a clinically suspicious finding. The patient's information is entered into a reminder system with a target due date for her next mammogram. Abdomen CT 07/25/18 15:15 Impression: Moderate amount of constipation. Findings and recommendations discussed with Jl Gray MD, at 1625 hour, 07/25/2018. Final report concurs with initial preliminary interpretation. ED Course/Re-evaluation: CHIEF COMPLAINT: Right breast lesion HISTORY OF PRESENT ILLNESS: The patient is a 32 y/o female with a history of Tito Angina and chronic pain complaining of a right breast lesion. The patient has "been bed-ridden sick for 11 months after a tooth infection". She then states "I have severe chronic and lower abdominal pain and I can't sleep or walk". This pelvic pain has become more severe for the past weeks. She denies any work up for the pelvic pain. She also states "my legs have been giving out recently and I have been falling". Recently she has also noticed sores on her breasts and groin near her hair follicles that initially started when she was on doxycycline. She had an US today on the right breast to rule out an infection. No fever, headache, body aches, lightheadedness, chest pain, heart palpitations, shortness of breath, cough, urinary or bowel complaints, numbness, paresthesias. REVIEW OF SYSTEMS: A comprehensive 10 system review of systems is otherwise negative aside from elements mentioned in the history of present illness and medical decision making. PHYSICAL EXAM: HR, BP, O2 Sat, RR. Temp noted General Appearance: Alert, well hydrated, appropriate, and non-toxic appearing. Head: Atraumatic without scalp tenderness or obvious injury Eyes: Pupils equal, round, reactive to light and accommodation, EOMI, no trauma , no injection. Ears: Clear bilaterally, no perforation, normal landmarks Nose: Atraumatic, no rhinorrhea, clear. Throat: There is no erythema or exudates, no lesions, normal tonsils, mucus membranes moist. Neck: Supple, 2+ carotid upstroke, nontender, no lymphadenopathy. Respiratory: No retractions, no distress, no wheezes, and no accessory muscle use. Lungs are clear to auscultation bilaterally. Cardiovascular: Regular rate and rhythm, no murmurs, rubs, or gallops. Bilateral carotid, radial, dorsalis pedis, and posterior tibial pulses intact. Good capillary refill all extremities. Gastrointestinal: Minor abdominal tenderness. Abdomen is soft, non-distended, no masses, no rebound, no guarding, no peritoneal signs. Musculoskeletal: Normal active ROM of all extremities, atraumatic. Neurological: Alert, appropriate, and interactive. The patient has normal DTRs and non-focal cranial nerves, motor, sensory, and cerebellar exam. Skin: Lesions on breast and groin. No rashes, good turgor, no nodules on palpation. Past medical history: Tito angina, chronic pain, migraines, pain management Past surgical history: Denies Family history: Denies Social history: Lives in [place], single, not employed DIAGNOSTICS/PROCEDURES/CRITICAL CARE TIME: Abdominopelvic CT: Pending at shift change. DIFFERENTIAL DIAGNOSIS: The differential diagnosis for the patient's abdominal pain included but was not limited to ovarian cyst, pelvic inflammatory disease, ovarian torsion, urinary tract infection, ectopic , cholecystitis, and appendicitis. The differential diagnosis included but was not limited to viral syndrome, bacterial infection, hidradenitis suppurative, urticarial reaction, and other infectious causes for skin rash. MEDICAL DECISION MAKING: The patient is a 32 y/o female with a history of Tito Angina and chronic pain complaining of a right breast lesion. She states "I have severe chronic and lower abdominal pain and I can't sleep or walk". This pelvic pain has become more severe for the past weeks. She denies any work up for the pelvic pain. Recently she has also noticed sores on her breasts and groin near her hair follicles that initially started when she was on doxycycline. She had an US today on the right breast to rule out an infection. On exam she has breast and groin lesions consistent with hidradenitis suppurative. She also has minor abdominal tenderness. Labs and abdominopelvic CT ordered; 500mg PO Doxycycline, 500mg PO Keflex, 1L IV NS, and 30mg IV Toradol administered. 1500: Patient care turned over to Dr. Gray at shift change. (Justice Knihgt) Other Provider: 15:00 I assumed care of this patient at shift change pending results of CT abdomen/pelvis. The patient additionally complained of breast and groin lesions which were evaluated by Dr. Knight and were found to be consistent with hidradenitis suppurativa. She has been treated with 500mg PO Doxycycline, 500mg PO Keflex. If CT abdomen/pelvis is unremarkable, the patient will be discharged home to follow up outpatient with dermatology. Prescriptions for home PO antibiotics provided. 16:[address] Rees, radiologist. CT abdomen/pelvis is negative for acute processes, evidence of constipation. Reassessed patient. Discussed imaging results. Plan to discharge home in good condition as above. The patient is comfortable with this plan. (Jl Gray) - Data Points Laboratory Results: 07/25/18 07/25/18 15:36 15:01 POC Hgb 11.9 gm/dL L gm/dL (12.6-16.3) POC Hct 35 % L % (38-47) POC Sodium 140 mEq/L mEq/L (135-145) POC Potassium 3.8 mEq/L mEq/L (3.3-5.0) POC Chloride 108 mEq/L mEq/L (97-110) POC Total CO2 19 mEq/L L mEq/L (22-31) POC BUN 10 mg/dL mg/dL (7-23) POC Creatinine 0.7 mg/dL mg/dL (0.6-1.0) POC Glucose 105 mg/dL H mg/dL (70-100) Urine Color YELLOW Urine Appearance MODERATELY TURBID Urine pH 7.0 (5.0-7.5) Ur Specific [place] 1.016 (1.002-1.030) Urine Protein NEGATIVE (NEGATIVE) Urine Ketones NEGATIVE (NEGATIVE) Urine Blood NEGATIVE (NEGATIVE) Urine Nitrate NEGATIVE (NEGATIVE) Urine Bilirubin NEGATIVE (NEGATIVE) Urine Urobilinogen NEGATIVE EU EU (0.2-1.0) Ur Leukocyte Esterase NEGATIVE (NEGATIVE) Urine RBC NONE SEEN /hpf /hpf (0-3) Urine WBC 0-1 /hpf /hpf (0-3) Ur Epithelial Cells 2+ /lpf H /lpf (NONE-1+) Urine Bacteria 3+ /hpf H /hpf (NONE SEEN) Urine Mucus TRACE /lpf /lpf (NONE-1+) Urine Glucose NEGATIVE (NEGATIVE) Medications Given: Discontinued Medications Cephalexin HCl (Keflex) 500 mg PO EDNOW ONE PRN Reason: Protocol Stop: 07/25/18 14:09 Last Admin: 07/25/18 14:51 Dose: 500 mg Doxycycline Hyclate (Doxycycline Hyclate) 100 mg PO EDNOW ONE PRN Reason: Protocol Stop: 07/25/18 14:09 Last Admin: 07/25/18 14:50 Dose: 100 mg Sodium Chloride (Ns) 1,000 mls @ 0 mls/hr IV EDNOW ONE; Wide Open PRN Reason: Protocol Stop: 07/25/18 14:13 Last Admin: 07/25/18 14:56 Dose: Not Given Ketorolac Tromethamine (Toradol) 30 mg IVP EDNOW ONE Stop: 07/25/18 14:10 Last Admin: 07/25/18 14:51 Dose: 30 mg Point of Care Test Results: Chemistry 07/25/18 15:01 POC Sodium 140 mEq/L mEq/L (135-145) POC Potassium 3.8 mEq/L mEq/L (3.3-5.0) POC Chloride 108 mEq/L mEq/L (97-110) POC Total CO2 19 mEq/L L mEq/L (22-31) POC BUN 10 mg/dL mg/dL (7-23) POC Creatinine 0.7 mg/dL mg/dL (0.6-1.0) POC Glucose 105 mg/dL H mg/dL (70-100) ISTAT H&H 07/25/18 15:01 POC Hgb 11.9 gm/dL L gm/dL (12.6-16.3) POC Hct 35 % L % (38-47) Departure <Justice Knight - Last Filed: 07/25/18 14:43> <Jl Gray - Last Filed: 07/25/18 16:40> - Departure Disposition: Home, Routine, Self-Care Clinical Impression: Hidradenitis suppurativa, Abdominal pain, Constipation Condition: Good Instructions: Hidradenitis Suppurativa (ED) Additional Instructions: 1. Take Doxycycline and Keflex as prescribed. 2. Follow up with a pole tester. Referrals: Elliot Valera MD [Primary Care Provider] - As per Instructions Prescriptions: Cephalexin [Keflex (RX)] 500 mg PO TID #30 cap Doxycycline Hyclate 100 mg PO BID #20 tablet Ketorolac Tromethamine 10 mg PO Q6H PRN #16 tab PRN Reason: Pain/inflammation Report Scribed for: Justice Kinght Report Scribed by: Cat Rao Date of Report: 07/25/18 Time of Report: 14:01 <Justice Knight - Last Filed: 07/25/18 14:43>
[2018-07-25] MEDS ORDERED: DOXYCYCLINE HYCLATE 100 MG CAP/TAB PO ONE (14:08)
[2018-07-25] MEDS ORDERED: CEPHALEXIN 500 MG CAP PO ONE (14:08)
[2018-07-25] MEDS ORDERED: KETOROLAC 30 MG/1 ML SDV IVP ONE (14:09)
[2018-07-25] MEDS ORDERED: NS 1,000 ML IV ONE (14:12)
[2018-07-25] MEDS ORDERED: IOPAMIDOL (ISOVUE-300) 100 ML BTL ONE (15:21)
[2018-07-25 17:01] VITALS: BP 109/71
== END 2018-07-25 17:01 | disposition home or self-care (01) ==
DX: L73.2 Hidradenitis suppurativa (principal); E86.9 Volume depletion, unspecified; R10.2 Pelvic and perineal pain; K59.00 Constipation, unspecified; G89.29 Other chronic pain; G43.909 Migraine, unspecified, not intractable, without status migrainosus; Z98.82 Breast implant status; Z88.0 Allergy status to penicillin; Z88.2 Allergy status to sulfonamides
CPT/HCPCS: 82435-PO; 82565-PO; 82947-PO; 84132-PO; 84295-PO; 84520-PO; 85014-ER; 96374; J1885; Q9967

== ENCOUNTER 2018-07-30 14:50 | Emergency (ER) | payer MEDICAID ==
--- NOTE | 2018-07-30 15:34 | EDPHY ---
General Time Seen by Provider: 07/30/18 15:12 Narrative: CLINICAL IMPRESSION: Hidradenitis suppurativa ASSESSMENT/PLAN: 32-year-old female very familiar to this emergency department with a past medical history of chronic pain, hidradenitis suppurativa, seen recently in this emergency department for possible breast infection however had reassuring breast ultrasound and normal labs. Patient also had normal CT abdomen pelvis after complaining of chronic lower pelvic pain. She was discharged on doxycycline and Keflex, returns to the emergency department today feeling as though these antibiotics are not working because she continues to have swelling to the right breast. On exam, patient has 2 superficial lesions to the right breast with no circumferential erythema, induration, fluctuance, crepitus, or clinical signs to suggest underlying breast abscess, cellulitis, mastitis, palpable breast mass, necrotizing fasciitis, or deep space infection. She has no associated axillary lymphadenopathy. She has full range of motion of the right arm. She has stable vital signs on arrival, afebrile, no tachycardia, tachypnea and does not appear toxic or septic. I did discuss an offer repeat lab evaluation to include CBC, lactate, basic metabolic panel but patient states "I always have a low white blood count even when I am sick it will not go up". Patient does not wish to have repeat labs she simply wants her antibiotic changed. She reports history of MRSA but also reports adverse reaction to sulfa and penicillins. She is currently taking Keflex. I have changed her to clindamycin. She is established with Dermatology and plans to go on Humira for her autoimmune disease. I encouraged to follow up with primary care in Dermatology in the next 24-48 hours. Warning signs return to ED sooner discussed discharge. DIFFERENTIAL DX: Differential includes but not limited to mastitis, breast abscess, cellulitis, hidradenitis suppurative CHIEF COMPLAINT: Concern for worsening breast infection HPI: [ 32-year-old female with reported past medical history of chronic pain disorder , hidradenitis suppurativa, presents to the emergency department today requesting a new antibiotic as she feels antibiotic our emergency department prescribed 5 days ago for possible breast infection is not helping. Patient reports she has been compliant with doxycycline and Keflex but that she has had persistent right breast pain and swelling. She had reassuring breast ultrasound that did not reveal evidence of abscess. She tells me that she also had a mammogram 5 days ago but I do not find record of this. Patient has had numerous ED visits and has prior history of narcotic abuse. She states that she has had fevers at home no higher than 100.4. She denies vomiting but reports she has been nauseous. She denies cough or shortness of breath. She denies redness or discoloration to the breast. She denies nipple discharge. No swelling to the right arm. No personal or family history of breast cancer. PAST MEDICAL HISTORY: Chronic pain, hidradenitis suppurativa See triage summary and nurse notes for addition applicable history Pertinent Past Surgical History: See nurse triage Social History: Here with mother at bedside who frequently interrupt the patient and requests specific labs and medications, specifically narcotics REVIEW OF SYSTEMS: A full 10 point review of systems was negative except for those mentioned in HPI. PHYSICAL EXAM: General Appearance: Alert, oriented, appropriate, cooperative, NAD, well hydrated, non-toxic appearing, VSS, afebrile, no hypoxia. Respiratory: There are no retractions, lungs are clear to auscultation. Cardiac: Regular rate and rhythm, no murmurs or gallops. Breast: 2 superficial lesions to the right breast at approximately 11 and 9:00 a.m.. These are not draining purulent discharge and there is no associated circumferential erythema, induration, warmth, or bleeding. No nipple discharge. I do not appreciate breast erythema or warmth to suggest mastitis. I do not palpate underlying breast mass although patient has very dense breasts. There is no appreciable axillary lymphadenopathy or right arm swelling. She has superficial contusion and superficial wound to the left breast. Gastrointestinal: [Abdomen is soft, nontender Skin: see findings above MEDICAL DECISION MAKING: Patient was seen independently. Secondary supervising physician at time of evaluation was: Dr. Craig . Diagnosis: Hidradenitis suppurativa . New, requires workup Summary: See Assessment and Plan for summary of ED visit Reviewed recent ED chart notes and imaging studies Patient Progress: Stable for discharge. - History Smoking Status: Never smoked - Objective Vital Signs: Initial Vital Signs Temperature (C) 36.5 C 07/30/18 14:55 Heart Rate 108 H 07/30/18 14:55 Respiratory Rate 20 07/30/18 14:55 Blood Pressure 124/87 H 07/30/18 14:55 O2 Sat (%) 99 07/30/18 14:55 O2 Delivery Mode Room Air Allergies/Adverse Reactions: Sulfa (Sulfonamide Antibiotics) Allergy (Severe, Verified 07/25/18 13:52) Other-Enter Comments morphine [Morphine] Allergy (Intermediate, Verified 07/25/18 13:52) Hives prochlorperazine edisylate [From Compazine] Allergy (Intermediate, Verified 01/03 13:52) Anxiety Penicillins Allergy (Mild, Verified 07/25/18 13:52) Hives metoclopramide [From Reglan] Allergy (Verified 07/25/18 13:52) prochlorperazine [From Compazine] Allergy (Verified 07/25/18 13:52) tramadol Allergy (Verified 07/25/18 13:52) VERSED Allergy (Mild, Uncoded 10/13/16 14:13) Other-Enter Comments Home Medications: Medication Instructions Recorded Cyclobenzaprine [Flexeril 10 MG 10 mg PO TID PRN 10/13/16 (*)] Diazepam [Valium 5 MG (*)] 5 - 10 mg PO Q6HRS PRN 10/13/16 Hydrocortisone [Cortef 10 mg (*)] 10 mg PO DAILY 10/13/16 Promethazine HCl 25 mg RC TID PRN 10/13/16 Promethazine HCl [Phenergan 25mg 25 mg PO TID PRN 10/13/16 (*)] Adderall 10 MG (*) 04/14/18 Gabapentin 04/14/18 Solu-Cortef 1,000 mg Vial 04/14/18 Tizanidine HCl 04/14/18 Cephalexin [Keflex (RX)] 500 mg PO TID #30 cap 07/25/18 Doxycycline Hyclate 100 mg PO BID #20 tablet 07/25/18 Ketorolac Tromethamine 10 mg PO Q6H PRN #16 tab 07/25/18 Clindamycin 300 mg PO QID #28 cap 07/30/18 Movantik 07/30/18 Departure - Departure Disposition: Home, Routine, Self-Care Clinical Impression: Hidradenitis suppurativa Condition: Good Instructions: Hidradenitis Suppurativa (ED) Additional Instructions: DISCHARGE INSTRUCTIONS FROM YOUR DOCTOR Thank you for visiting our emergency department today. You were treated by a physician bookkeeper assistant today and your case was reviewed with our ED Attending physician. Please keep in mind that discharge from the emergency department does not mean that there is nothing wrong - it simply means that we have not identified an emergency condition that requires further evaluation or treatment in the hospital. You should always plan to follow up with primary care for re- evaluation of your condition in the next 2-3 days. If you have been referred to a specialist, please call as soon as possible (today or tomorrow) to schedule your follow up appointment at the appropriate time. [WE ARE CHANGING YOUR ANTIBIOTIC TO CLINDAMYCIN. PLEASE FOLLOW-UP WITH DR. HENDRICKSON TO DISCUSS STARTING HUMIRA. PLEASE TAKE ANTIBIOTIC DIRECTED. DO NOT PICK AT SCABS OR LESIONS. BREAST ULTRASOUND REPORT BY RADIOLOGY REVIEWED WITH NO IDENTIFIED ABSCESS. I WAS UNABLE TO FIND RECENT MAMMOGRAM RESULTS. THESE MAY BE ON A DIFFERENT SYSTEM. WE RECOMMEND ROUTINE MAMMOGRAM SCREENING RECOMMENDED BY PRIMARY CARE. PLEASE TAKE HOME PAIN MEDICATIONS PRESCRIBED BY PRIMARY CARE. RETURN TO ED FOR ANY OTHER CONCERNS. ] People present with illnesses and injuries in different ways, and it is always possible that we have missed something. You may always return for re-evaluation if symptoms worsen or if they are not improving or if you develop new/different symptoms. Again, thank you for choosing our emergency department. We hope that you feel better. Referrals: Elliot Valera MD [Primary Care Provider] - 1-2 days without fail Prescriptions: Clindamycin 300 mg PO QID #28 cap
[2018-07-30 15:48] VITALS: BP 114/77
== END 2018-07-30 15:48 | disposition home or self-care (01) ==
DX: L73.2 Hidradenitis suppurativa (principal)